=== PATIENT | male | born 1950 | race Caucasian/White ===

== ENCOUNTER 2017-03-17 23:20 | Inpatient (IN) | payer MEDICAID, OTHER ==
[~2017-03-17] VITALS: Ht 175.3 cm; Wt 74.4 kg
--- NOTE | 2017-03-17 23:21 | ED.REPORT ---
HPI-Dyspnea / Wheezing Date of Service Mar 17, 2017 ED Provider: Khurram Lama DO Patient is a 66 year old male with a history of hypertension who presents to the ED via EMS due to a syncopal episode. Associated symptoms include lightheadedness, shortness of breath and a non productive cough. He denies fever. Patient states that when he stood up today he began to feel lightheaded and fainted. The patient had a syncopal episode 4 days ago that prompted him to go to [facility]. 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 Nursing Notes Stated Complaint: WEAKNESS,SHORTNESS OF BREATH Nursing Notes Reviewed: Yes Allergies: Coded Allergies: No Known Allergies (Unverified , 03/17/17) General Time Seen by MD: 23:21 Chief Complaint Shortness of breath Hx Obtained From: Patient Arrived By: Ambulance Sudden in Onset?: Yes Onset Occurred: 5 days ago Symptom Duration: Since onset Severity: Current: No pain currently Recent Healthcare: Recent doctor visit, Recent hospitalization Similar Sx Previous: Yes Past Medical History Past Medical History recent hospitalization at [facility] (03/16/17) due to pneumonia Smoking History Former Smoker (quit 8 months ago) Ambulatory Status Independent Review of Systems Constitutional: Denies: Chills, Fever Respiratory: Reports: Non-productive cough, Shortness of breath Cardiovascular: Denies: Chest pain Skin: Denies Itching, Denies Rash Complete sys rev & neg: except as marked. Neurologic: Reports: Lightheaded, Syncope, Denies: Numbness, Problem walking, Weakness Physical Exam Initial Vital Signs Vital Signs (First) Date Time Temp Pulse Resp B/P Pulse Ox O2 Delivery O2 Flow Rate FiO2 03/17/17 23:24 37.2 97 23 174/74 97 Room Air Initial VS: Reviewed General/Constitutional: Awake, Alert Neck: Atraumatic, Supple, Full range of motion Respiratory / Chest: Atraumatic, No respiratory distress coarse wheezing bilaterally moderate conversational dyspnea barrel chested Cardiovascular: Heart rate NL, Regular rhythm, Heart sounds NL Abdomen: Atraumatic, Soft, Non-tender Skin: Atraumatic, Color NL, No rash, Warm, Dry Neurologic: Oriented X3, Speech NL, No motor deficits, No sensory deficits Head / Eyes: Atraumatic, Normocephalic Psychiatric: Affect NL, Mood NL Interpretation & Diagnostics Lab Results Interpretation Result Diagram: 03/18/17 0453 03/18/17 0453 Test 03/17/17 23:25 03/18/17 00:30 Hold Purple Top Tube Received (Received) Hold Blue Top Tube Received (Received) Hold [place] Top Tube Received (Received) D-Dimer 2.41mg/L FEU (<0.50) Lactic Acid Level 1.6mmol/L (0.4-2.0) Troponin T 0.010ug/L (0.0-0.011) Pro-B-Type Natriuretic Peptide 1770pg/mL (0-210) Procalcitonin 0.38ng/mL (0.00-0.08) X-Ray Chest Interpretation Chest Xray Interpretation: mild patch air space disease View: Portable, 1 view Interpretation / Wet Read by: Wet read ED physician CT Chest Interpretation IMPRESSION: No evidence for PE. Moderate-sized bilateral pleural effusions. Bilateral diffuse reticulonodular densities. Infection should be considered. Differential diagnosis includes hypersensitivity pneumonitis or inflammatory lung disease. There is scarring in the left lung apex with a spiculated lesion measuring 1.5 cm. This may represent focal apical lung scarring. Lung carcinoma is also possible. at 0141 Study type: CT pulm angiogram Interpretation / Wet Read by: Interpret - Radiologist Re-Eval/Medical Decision Med Decision/Clinical Course 66-year-old male presents in moderate distress. He suffered a syncopal episode associated with shortness of breath. As it worsens recently treated for pneumonia and he was discharged home I believe 2 days ago. Today he is so short of breath he passed out. He presents now with cough and global weakness. He did not have any specific chest pain. On examination he looked moderately ill. At times her sat was 89%. He has wheezes and rales in both lung gomez. He looked to be at least moderate distress due to the fact that he could not speak anymore than 5-7 word sentences. Chest x-ray shows patchy infiltrates bilaterally. EKG and cardiac enzymes are reassuring. D-dimer was markedly elevated. CT and grandma's chest was performed. Pulmonary emboli was not visualized. Bilateral pneumonia with bilateral pleural effusions and a left upper lobe spiculated mass were identified. Mr. Badillo was fluid resuscitated. He was treated with bronchodilators. IV steroids. Broad spectrum antibiotics. Overall he looked and felt much better. He was admitted to the progressive care unit in stable condition. Re-Evaluation/Progress #1: Time of Eval: 00:24 Re-Evaluation/Progress Note: Discussed plan for CT due to elevated D-Dimer. Re-Evaluation/Progress #2: Time of Eval: 01:05 Re-Evaluation/Progress Note: Discussed plan for admit. Patient understands and agrees to plan. All questions were addressed. 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, Agrees with plan, Accepts admit Counseled Regarding: Diagnosis, Lab results, Need for admission Discharge & Departure Impression: Primary Impression: Bilateral pneumonia Pneumonia type: due to unspecified organism Lung location: upper lobe of lung Qualified Code: J18.9 - Pneumonia, unspecified organism Additional Impressions: Pleural effusion Reticulonodular infiltrate present on imaging of chest COPD exacerbation Syncope Syncope type: unspecified Qualified Code: R55 - Syncope and collapse Lung nodule Disposition: ADMITTED TO HOSPITAL Discharge Condition All VS Reviewed: Yes Condition: Stable Referrals: Tanner Campbell MD (Family) Crit Care Except Billable Proc Time Spent: 30-74 minutes (60 minutes with bedside management respiratory distress and pneumonia.) Services Performed: Patient management by me, Time spent at bedside, Reviewing test results, Reviewing imaging, Discussing patient care, Documentation in record Scribe Attestation Portions of this note were transcribed by Hannah Jacob. I, Dr. Lama personally performed the history, physical exam and medical decision-making; I reviewed and confirmed the accuracy of the information in the transcribed note. Signed by: Jackeline Merchant, 03/18/17 and 0011 copies to: Tanner Campbell MD, Todd P DO Mar 17, 2017 23:21 Marilee Jacob Mar 17, 2017 23:51 (ALT/SGPT) 56U/L (0-44) Alkaline Phosphatase 112U/L (25-160) Troponin T 0.010ug/L (0.0-0.011) Pro-B-Type Natriuretic Peptide 1770pg/mL (0-210) Total Protein 6.5g/dL (6.4-8.4) Albumin 2.8g/dL (3.4-5.0) Procalcitonin 0.38ng/mL (0.00-0.08) X-Ray Chest Interpretation Chest Xray Interpretation: mild patch air space disease View: Portable, 1 view Interpretation / Wet Read by: Wet read ED physician CT Chest Interpretation IMPRESSION: No evidence for PE. Moderate-sized bilateral pleural effusions. Bilateral diffuse reticulonodular densities. Infection should be considered. Differential diagnosis includes hypersensitivity pneumonitis or inflammatory lung disease. There is scarring in the left lung apex with a spiculated lesion measuring 1.5 cm. This may represent focal apical lung scarring. Lung carcinoma is also possible. at 0141 Study type: CT pulm angiogram Interpretation / Wet Read by: Interpret - Radiologist Re-Eval/Medical Decision Med Decision/Clinical Course Patient was complaining of shortness of breath and syncopal episodes. Trop was negative. He had an elevated D-Dimer so a CT was ordered to rule out PE. Scans showed bilateral diffuse reticulonodular densities, moderate bilateral pleural effusions and scarring in the left lung apex with a spiculated lesion measuring 1.5cm. Re-Evaluation/Progress #1: Time of Eval: 00:24 Re-Evaluation/Progress Note: Discussed plan for CT due to elevated D-Dimer. Re-Evaluation/Progress #2: Time of Eval: 01:05 Re-Evaluation/Progress Note: Discussed plan for admit. Patient understands and agrees to plan. All questions were addressed. 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 I, Dr. Lama personally performed the history, physical exam and medical decision-making; I reviewed and confirmed the accuracy of the information in the transcribed note. Signed by: Jackeline Merchant, 03/18/17 and 0011 copies to: Tanner Campbell MD, Todd P DO Mar 17, 2017 23:21 Marilee Jacob Mar 17, 2017 23:51
[2017-03-17 23:24] VITALS: BP 174/74; PULSE 97; RESP 23; O2SAT 97
[2017-03-17] MEDS ORDERED: Albuterol-Ipratropium 3 mL Inhalation Solution NEB ONE (23:50)
[2017-03-18] VITALS (11 sets, daily range): BP systolic 115–163; BP diastolic 59–80; PULSE 69–92; RESP 15–21; O2SAT 95–98
[2017-03-18 00:43] LABS: BASOPHILS % (AUTO) 0.6 % (0-3)
[2017-03-18 00:47] LABS: EOSINOPHILS % (AUTO) 0.7 % (0-5); MONOCYTES % (AUTO) 8.9 % (4-12); Mean Corpuscular Hemoglobin 30.8 pg (27.0-35.0); Mean Corpuscular Volume 93.7 fL (81-100); NEUTROPHILS % (AUTO) 74.9 % (40-74); Platelet Count 379 bil/L (150-400)
[2017-03-18 01:11] LABS: TROPONIN T 0.01 ug/L (0.0-0.011)
[2017-03-18] MEDS ORDERED: MethylprednisoLONE Sodium Succinate 62.5 mg/mL 2 mL Inj IVPUSH ONE (01:50)
[2017-03-18] MEDS ORDERED: Piperacillin-Tazo 3.375 Gm Inj 3.375 GM in Dextrose 5% Minibag Plus 50 ML IV ONE (01:50)
[2017-03-18] MEDS: levoFLOXacin Inj 750 MG in IV Premix 1 EACH IV ONE ×2 (02:08→02:41)
[2017-03-18] MEDS ORDERED: Polyethylene Glycol (PEG) 17 Gm Powder PO PRN (03:00)
[2017-03-18] MEDS ORDERED: Alum-Mag Hydrox-Simeth 30 mL Suspension PO PRN (03:00)
--- NOTE | 2017-03-18 03:22 | PCM.HPMED ---
Subjective Date of Service Mar 18, 2017 Primary Provider: Admitting Physician: Primary Care Physician: Attending Physician: Admit Status: From the Emergency Department Chief Complaint: Lightheadedness, near-syncope History of Present Illness: Patient is a 66 year old male with a history of hypertension who presents to the ED via EMS due to a near-syncopal episode. Patient states that when he stood up today he began to feel lightheaded, and called 911. He then walked to his bed, states he nearly passed out, but maintained consciousness. He reports intermittent dizziness when standing up. The patient had a syncopal episode 4 days ago that prompted him to go to [facility]. 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 Associated symptoms include lightheadedness, shortness of breath and a non productive cough. He also reports mild chest pain in bilateral lower ribs, not associated with exertion. He reports night sweats last Saturday night. He reports weight loss of 14 lbs since May 2016. He denies fever, chills, wheezing, N/V/D, or any other complaints. Patient reports that he avoids medical care and has not seen a doctor for years. On admission, BP was 174/74, WBC 9 with 75% neutrophils, Hb 12.3, Hct 37.4. Lactic acid 1.6. AST 93, ALT 56, proBNP 1770, procalcitonin 0.38. D-dimer 2.41. CT angio chest night read: No evidence for PE, moderate sized bilateral pleural effusions, bilateral diffuse reticulonodular densities, spiculated 1.5 cm lesion in left lung apex. Review of Systems: Comprehensive review of systems conducted and was negative except for the pertinent positives listed above. Allergies Coded Allergies: No Known Allergies (Unverified , 03/17/17) Home Medications None PMH Hypertension Surgical History None Family History Mother - Stroke Denies any other family history Social History Hx Alcohol Use: No Hx Substance Use: No Smoking Status: Former Smoker (quit 8 months ago. Hx of 20 yrs x 2 PPD) Exam Vital Signs Vital Sign - Last Date Time Temp Pulse Resp B/P Pulse Ox O2 Delivery O2 Flow Rate FiO2 03/18/17 00:33 92 20 149/63 97 Room Air 03/17/17 23:24 37.2 Exam General: Alert, Oriented X3, Cooperative, No acute distress Head: Normocephalic, atraumatic. External ears normal. Eyes: PERRLA, EOMI. Anicteric sclerae. Mouth: Mouth normal, Mucous membranes moist/pink Neck: Neck supple with full range of motion. Chest& Lungs: Decreased lung sounds at the left base. Cardiovascular: Regular rate/rhythm, Normal S1, Normal S2, No murmurs/rubs/ gallops Abdomen: Non-tender, Non-distended, No masses, Normoactive bowel tones, Soft Musculoskeletal: Normal range of motion Extremities: Minimal bilateral lower extremity edema. Neurological: Grossly neurologically intact. Normal speech Skin: no rashes or ecchymosis Lymph: no cervical or supraclavicular lymphadenopathy Lab and Diagnostics Result Diagram: 03/18/172903/18/1729 Assessment & Plan Patient is a 66 year old male with a history of hypertension who presents to the ED via EMS due to a near-syncopal episode. Admitted for bilateral lower lobe pneumonia. Bilateral healthcare associated pneumonia, acute. Present on admission. - Pt presents with lightheadedness; CT scan shows bilat pneumonia (reviewed on admission). Recent hx of hospitalization for pneumonia at [facility] (request records from [facility]). Pt received Vancomycin, Zosyn and levofloxacin in ED. - Continue Vancomycin and Zosyn. Rechecking Cr in AM as pt received contrast. - Urine Legionella and Strep pneumo antigens - MRSA nasal swab - Respiratory viral PCR - Requested records from [facility] Elevated LFTs, unknown acuity. Present on admission. - AST 93, ALT 56. AST is somewhat higher than ALT; pt denies alcohol use. Denies abd pain, N/V/D. - Abd US in AM. - Monitor CMP Hypertension chronic. Present on admission. - Not on any medications. BP was 174/74 on admission. Down to 149/63. Continue to monitor BP overnight, and if it remains elevated over 140 consistently, consider CCB or DARIN inhibitor PO. - Continue to monitor Solitary pulmonary nodule of the left lung apex - CT angio chest showed a spiculated 1.5 cm apical left lung nodule. Given his 40 pack year history, this is suspicious for malignancy. He reports recent night sweats and weight loss. Given its size and spiculated nature, the potential for malignancy is high. Pt should have CT-guided lung biopsy and PET scan in outpatient setting. - Outpatient PET scan - Outpatient CT guided lung biopsy - Bowel regimen as needed - Antiemetic as needed Patient is admitted under inpatient status with expected length of stay greater than 2 midnights due to severity of presenting symptoms, risk of adverse event, and complexity of treatment plan. Attending Statement The patient was seen and examined together with house staff on 03/18/2017 and I agree with the history, exam and plan as outlined in the note above. Albert Saleem Mar 18, 2017 03:22 Keiry Muñoz DO Mar 18, 2017 06:05
[2017-03-18] MEDS ORDERED: 0.9% Sodium Chloride 100 ML ONE (04:08)
[2017-03-18 04:59] LABS: BASOPHILS % (AUTO) 0.5 % (0-3); EOSINOPHILS % (AUTO) 0.2 % (0-5); MONOCYTES % (AUTO) 3.7 % (4-12); Mean Corpuscular Hemoglobin 31.4 pg (27.0-35.0); Mean Corpuscular Volume 94.2 fL (81-100); NEUTROPHILS % (AUTO) 87.6 % (40-74); Platelet Count 356 bil/L (150-400)
--- NOTE | 2017-03-18 06:51 | PCM.CONPHA ---
Subjective Date of Service: Mar 18, 2017 Requesting Provider: Albert Saleem Lightheadedness, near-syncope Reason for Pharmacy Consult: Vancomycin Dosing Objective Vital Signs Date Time Temp Pulse Resp B/P Pulse Ox O2 Delivery O2 Flow Rate FiO2 03/18/17 04:40 88 03/18/17 04:05 36.8 83 16 163/80 95 Room Air 03/18/17 03:55 37 90 20 142/66 98 Room Air 03/18/17 00:33 92 20 149/63 97 Room Air 03/18/17 00:02 90 20 97 Room Air 03/17/17 23:24 37.2 97 23 174/74 97 Room Air Weight (Kilograms): 75.700 Height (Feet): 5 Height (Inches): 9.00 Test 03/17/17 23:25 03/18/17 00:30 03/18/17 04:53 03/18/17 05:00 Hold Purple Top Tube Received (Received) Hold Blue Top Tube Received (Received) Hold [place] Top Tube Received (Received) D-Dimer 2.41mg/L FEU (<0.50) Lactic Acid Level 1.6mmol/L (0.4-2.0) Troponin T 0.010ug/L (0.0-0.011) Pro-B-Type Natriuretic Peptide 1770pg/mL (0-210) Procalcitonin 0.38ng/mL (0.00-0.08) White Blood Count 8.3th/mm3 (3.8-10.1) Red Blood Count 3.98mil/mm3 (4.40-5.80) Hemoglobin 12.5g/dL (13.8-17.2) Hematocrit 37.5% (41.0-50.0) Mean Corpuscular Volume 94.2fL (81-100) Mean Corpuscular Hemoglobin 31.4pg (27.0-35.0) Mean Corpuscular Hemoglobin Concent 33.3% (32.0-37.0) Red Cell Distribution Width 12.9% (12.3-15.4) Platelet Count 356bil/L (150-400) Neutrophils (%) (Auto) 87.6% (40-74) Lymphocytes (%) (Auto) 7.8% (14-46) Monocytes (%) (Auto) 3.7% (4-12) Eosinophils (%) (Auto) 0.2% (0-5) Basophils (%) (Auto) 0.5% (0-3) Hematology Comments Sodium Level 138mEq/L (134-144) Potassium Level 4.5mEq/L (3.5-5.2) Chloride Level 100mEq/L (97-108) Carbon Dioxide Level 24mmol/L (18-29) Blood Urea Nitrogen 9mg/dL (8-27) Creatinine 0.77mg/dL (0.76-1.27) Estimat Glomerular Filtration Rate 108mL/min (>59) Glucose Level 137mg/dL (60-99) Calcium Level 8.5mg/dL (8.5-10.1) Total Bilirubin 0.4mg/dL (0.0-1.2) Aspartate Amino Transf (AST/SGOT) 90U/L (0-50) Alanine Aminotransferase (ALT/SGPT) 55U/L (0-44) Alkaline Phosphatase 111U/L (25-160) Total Protein 5.9g/dL (6.4-8.4) Albumin 2.8g/dL (3.4-5.0) Assessment/Plan Assessment/Plan A: * Vancomycin dosing by pharmacy for 66 y/o man with bilateral healthcare associated pneumonia * He received a vancomycin 1500 mg IV dose in the ED * The patient is also being started on Zosyn * Estimated CrCl for this patient is 97 mL/min (Cockcroft & Gault) * Estimated vancomycin half-life is 8 hours and Vd is 53 liters P: * Starting vancomycin 1500 mg IV every 12 hours * Target a vancomycin trough range of 15 - 20 mcg/mL * Draw a trough level prior to the fourth dose Thank you. Pharmacy will continue to follow this patient. Tabby Cabral Mar 18, 2017 06:51
--- NOTE | 2017-03-18 08:06 | DRSVH ---
PROCEDURE: X-RAY CHEST ONE VIEW, PORTABLE ([id number]) INDICATIONS: 66 year-old male with cough and shortness of breath. TECHNIQUE: One view of the chest was acquired. COMPARISON: [facility], CR, XR CHEST 2V AP/PA AND LAT, 06/23/2016, 8:12 PM. FINDINGS: Surgical changes and devices: None. Lungs and pleura: No pleural effusions or pneumothorax. Patchy bilateral air space opacities are now present. Mediastinum: Mediastinal contours appear normal. Heart size is normal. Bones and chest wall: No suspicious bony lesions. Overlying soft tissues appear unremarkable. IMPRESSION: Patchy bilateral air space opacities may reflect early bronchopneumonia. Dictated by: Olman Moctezuma M.D. on 03/18/2017 at 8:04 Approved by: Olman Moctezuma M.D. on 03/18/2017 at 8:04
--- NOTE | 2017-03-18 08:20 | DRSVH ---
PROCEDURE: CT ANGIO CHEST PULMONARY EMBOLISM ([id number]) INDICATIONS: syncope, short of breath TECHNIQUE: After the administration of intravenous contrast, 2 mm thick sections acquired from the pulmonary api dominic to the posterior costophrenic angles. 3-dimensional maximum intensity projection (MIP) coronal a nd sagittal reformats were then acquired through the thorax. For radiation dose reduction, the follo wing was used: automated exposure control, adjustment of mA and/or kV according to patient size. COMPARISON: [facility], CR, XR CHEST 1VW (PORTABLE), 03/17/2017, 23:46. FINDINGS: Image quality: Excellent. Pulmonary arteries: Pulmonary arteries are normal in size, and demonstrate no intraluminal filling d efects to suggest central pulmonary embolism. Lungs and pleura: There are multiple lung nodules or nodular infiltrates in the right upper, middle a nd lower lobes, as well as left lingula. Mild left basilar consolidation. A 1.4 cm mass in the left a pex. There are small bilateral pleural effusions. No pneumothorax. Central and peripheral airways are patent. Mediastinum: Heart size is normal, without pericardial effusion. There is mild mediastinal and bilat eral hilar lymphadenopathy. There is a 1.5 x 2.5 cm subcarinal lymph node. A mildly enlarged right pa ratracheal lymph node measures 1.2 cm in short axis. Prominent AP window lymph nodes are noted. Promi nent hilar lymph nodes laterally measure up to 1.3 cm. Thoracic aorta is normal in caliber and enhanc ement. Esophagus is normal in caliber, without hiatal hernia. Bones and chest wall: No suspicious bony lesions. Ribs and thoracic spine appear intact throughout. Thyroid gland is normal. No axillary or supraclavicular adenopathy. Abdomen: There are multiple calcified gallstones. A tiny hiatal hernia is noted. Visualized upper ab dominal solid organs appear normal in the early arterial phase of enhancement. IMPRESSION: 1. No evidence for central pulmonary embolism. 2. Bilateral lung nodules or nodular infiltrates. The CT findings are nonspecific. Differential diagn oses include infectious etiology, especially atypical infections, inflammatory condition (such as Weg ener's granulomatosis), and less likely neoplasm. Recommend short interval followup after adequate tr eatment. 3. A 1.0 cm left apical mass. Please see enclosed followup recommendation. 4. Bilateral small pleural effusions. 5. Mediastinal and bilateral lymphadenopathy. 6. Cholelithiasis. No significant discrepancy with the locomotive driver radiology preliminary report. Fleischner Society criteria for SOLID lung nodule followup. Nodule size (mm)Low-risk patientHigh-risk [id number] follow-up neededFollow-up at 12 mo; if no montoya e, no further follow-up>[id number] CT at 12 mo; if no change, no further follow-up needed.Initial f ollow-up CT at 6-12 mo, then 18-24 mo if no change. >6-8Initial follow-up CT at 6-12 mo, then 18-24 mo if no change. Initial follow-up CT at 3-6 mo, then 9-12 mo and 24 mo if no change. >8Follow-up CT at 3, 9, 24 mo. Or PET and/or biopsy.Same as for low-risk pts. Fleischner Society criteria for SUB-SOLID lung nodule followup. Solitary pure ground-glass nodules5 mm or lessNo followup needed. >5 mm3 mo follow-up CT to confirm persistence. Then annual CT for 3 years. Part-solid nodules3 mo follow-up CT to confirm persistence . If persistent with solid component <5 mm, annual CT for at least 3 years. If solid component is 5 mm or more, biopsy or surgical resection. Consider PET-CT for lesions > 10 mm. Multiple sub-solid nodulesPure ground glass nodules [address] at 2 and 4 years. Pure ground glass nodules >5 mm without dominant lesion. [address] to confirm persistence, then annual followup CT for at least 3 years. Dominant nodule(s) with part-solid or solid component. [address] to confirm persistence. If persistent, consider biopsy or surgical resection, sin if lesions have >5 m m solid component. Dictated by: Suri Sosa M.D. on 03/18/2017 at 8:05 Approved by: Suri Sosa M.D. on 03/18/2017 at 8:18
[2017-03-18] MEDS ORDERED: Vancomycin Dose per Pharmacist XX SCH (08:30)
[2017-03-18] MEDS ORDERED: 0.9% Sodium Chloride 250 ML ONE (08:56)
[2017-03-18] MEDS: Piperacillin-Tazo 3.375 Gm Inj 3.375 GM in Dextrose 5% Minibag Plus 50 ML IV SCH ×2 (08:59→17:22)
[2017-03-18] MEDS: Heparin 5,000 Unit/mL Inj SUBQ SCH ×2 (09:02→17:24)
--- NOTE | 2017-03-18 10:06 | NUR ---
NPO/[employer] Pt ate breakfast this morning and US needs to be done on empty stomach, water/ice ok to have; per US tech we can make NPO for noon meal and they will come back to do US this afternoon. Pt agreeable to plan. Will continue to monitor
[2017-03-18] MEDS ORDERED: Vancomycin Inj 1,500 MG in 0.9% Sodium Chloride 500 ML IV SCH (11:00)
[2017-03-18] MEDS: predniSONE 20 mg Tablet PO SCH (17:21)
--- NOTE | 2017-03-18 17:51 | DRSVH ---
PROCEDURE: US ABDOMEN ([id number]) INDICATIONS: Elevated LFTs TECHNIQUE: Real-time scanning was performed of the abdominal and retroperitoneal organs, with image documentatio n. COMPARISON: None. FINDINGS: Liver: Liver is coarsely echogenic. No focal lesion identified. Gallbladder: Numerous gravel like subcentimeter gallstones. There is gall bladder wall thickening and pericholecystic fluid. No sonographic Gaines sign. Biliary ducts: Intrahepatic bile ducts are non-dilated. Extrahepatic bile duct caliber measures 5 m m. Normal is 6-7 mm or less in diameter, or 10 mm or less post-cholecystectomy. Pancreas: Visualized portions of the pancreas are sonographically normal. Spleen: Spleen is normal in size and homogeneous in echotexture. Kidneys: Kidneys are normal in size and echotexture. Right kidney measures 10.8 cm long; left kidne y measures 11.7 cm long. No hydronephrosis or nephrolithiasis. No solid masses. Aorta: Visualized aorta is normal in caliber at less than 3 cm. Iliacs: Proximal common iliac arteries are normal in caliber at less than 2.5 cm. IVC: Intrahepatic inferior vena cava is patent. Miscellaneous: No free abdominal fluid. IMPRESSION: Cholelithiasis and gallbladder wall thickening. There is also pericholecystic fluid suspicious for ac matty cholecystitis, although no sonographic Gaines sign or biliary ductal dilatation. Therefore, pleas e correlate clinically and with LFTs. Echogenic liver suggesting diffuse hepatocellular disease/fatty infiltration. Please correlate clinic ally and with laboratory data Dictated by: Froilan Sampson M.D. on 03/18/2017 at 17:46 Approved by: Froilan Sampson M.D. on 03/18/2017 at 17:49
--- NOTE | 2017-03-18 20:38 | PCM.PNMED ---
Subjective Date of Service Mar 18, 2017 Subjective History: Patient is a 66 year old male with a history of hypertension who presents to the ED via EMS due to a near-syncopal episode. Patient states that when he stood up today he began to feel lightheaded, and called 911. He then walked to his bed, states he nearly passed out, but maintained consciousness. He reports intermittent dizziness when standing up. The patient had a syncopal episode 4 days ago that prompted him to go to [facility]. 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 Associated symptoms include lightheadedness, shortness of breath and a non productive cough. He also reports mild chest pain in bilateral lower ribs, not associated with exertion. He reports night sweats last Saturday night. He reports weight loss of 14 lbs since May 2016. He denies fever, chills, wheezing, N/V/D, or any other complaints. Patient reports that he avoids medical care and has not seen a doctor for years. On admission, BP was 174/74, WBC 9 with 75% neutrophils, Hb 12.3, Hct 37.4. Lactic acid 1.6. AST 93, ALT 56, proBNP 1770, procalcitonin 0.38. D-dimer 2.41. CT angio chest night read: No evidence for PE, moderate sized bilateral pleural effusions, bilateral diffuse reticulonodular densities, spiculated 1.5 cm lesion in left lung apex. Today, he is resting in bed comfortably in no acute distress. He is having some difficulty with breathing, has a sore throat and some dry cough. He denies headache, dizziness, nasal congestion, chest pain, nausea, vomiting, diarrhea and constipation. His last bowel movement was this morning. Exam Vital Signs Vital Sign - Last Date Time Temp Pulse Resp B/P Pulse Ox O2 Delivery O2 Flow Rate FiO2 03/18/17 04:40 88 03/18/17 04:05 36.8 16 163/80 95 Room Air Intake and Output 03/17/17 03/17/17 03/18/17 Cumulative From/Thru 15:00 23:00 07:00 03/17/17 23:24 - 03/18/17 06:15 Intake Total 0 ml 0 ml Output Total 550 ml 550 ml Balance -550 ml -550 ml Intake Oral 0 ml 0 ml Output Urine Total 550 ml 550 ml # Voids 2 2 # Bowel Movements 1 1 Exam General: Alert, Oriented X3, Cooperative, No acute distress Head: Normocephalic, atraumatic. External ears normal. Eyes: PERRLA, EOMI. Anicteric sclerae. Mouth: Mouth normal, Mucous membranes moist/pink Neck: Neck supple with full range of motion. Chest& Lungs: Decreased lung sounds and rales at the left base. Cardiovascular: Regular rate/rhythm, Normal S1, Normal S2, No murmurs/rubs/ gallops Abdomen: Non-tender, Non-distended, No masses, Normoactive bowel tones, Soft Musculoskeletal: Normal range of motion Extremities: Minimal bilateral lower extremity edema. Neurological: Grossly neurologically intact. Normal speech Skin: no rashes or ecchymosis Lymph: no cervical or supraclavicular lymphadenopathy Lab and Diagnostics Laboratory Tests 72 Hours Test 03/17/17 23:25 03/18/17 00:30 03/18/17 04:53 03/18/17 05:00 Hold Purple Top Tube Received (Received) Hold Blue Top Tube Received (Received) Hold Five [place] Top Tube Received (Received) White Blood Count 9.0th/mm3 (3.8-10.1) 8.3th/mm3 (3.8-10.1) Red Blood Count 3.99mil/mm3 (4.40-5.80) 3.98mil/mm3 (4.40-5.80) Hemoglobin 12.3g/dL (13.8-17.2) 12.5g/dL (13.8-17.2) Hematocrit 37.4% (41.0-50.0) 37.5% (41.0-50.0) Mean Corpuscular Volume 93.7fL (81-100) 94.2fL (81-100) Mean Corpuscular Hemoglobin 30.8pg (27.0-35.0) 31.4pg (27.0-35.0) Mean Corpuscular Hemoglobin Concent 32.9% (32.0-37.0) 33.3% (32.0-37.0) Red Cell Distribution Width 12.9% (12.3-15.4) 12.9% (12.3-15.4) Platelet Count 379bil/L (150-400) 356bil/L (150-400) Neutrophils (%) (Auto) 74.9% (40-74) 87.6% (40-74) Lymphocytes (%) (Auto) 14.6% (14-46) 7.8% (14-46) Monocytes (%) (Auto) 8.9% (4-12) 3.7% (4-12) Eosinophils (%) (Auto) 0.7% (0-5) 0.2% (0-5) Basophils (%) (Auto) 0.6% (0-3) 0.5% (0-3) Hematology Comments D-Dimer 2.41mg/L FEU (<0.50) Sodium Level 137mEq/L (134-144) 138mEq/L (134-144) Potassium Level 3.6mEq/L (3.5-5.2) 4.5mEq/L (3.5-5.2) Chloride Level 96mEq/L (97-108) 100mEq/L (97-108) Carbon Dioxide Level 24mmol/L (18-29) 24mmol/L (18-29) Blood Urea Nitrogen 11mg/dL (8-27) 9mg/dL (8-27) Creatinine 0.77mg/dL (0.76-1.27) 0.77mg/dL (0.76-1.27) Estimat Glomerular Filtration Rate 108mL/min (>59) 108mL/min (>59) Glucose Level 110mg/dL (60-99) 137mg/dL (60-99) Lactic Acid Level 1.6mmol/L (0.4-2.0) Calcium Level 8.6mg/dL (8.5-10.1) 8.5mg/dL (8.5-10.1) Total Bilirubin 0.3mg/dL (0.0-1.2) 0.4mg/dL (0.0-1.2) Aspartate Amino Transf (AST/SGOT) 93U/L (0-50) 90U/L (0-50) Alanine Aminotransferase (ALT/SGPT) 56U/L (0-44) 55U/L (0-44) Alkaline Phosphatase 112U/L (25-160) 111U/L (25-160) Troponin T 0.010ug/L (0.0-0.011) Pro-B-Type Natriuretic Peptide 1770pg/mL (0-210) Total Protein 6.5g/dL (6.4-8.4) 5.9g/dL (6.4-8.4) Albumin 2.8g/dL (3.4-5.0) 2.8g/dL (3.4-5.0) Procalcitonin 0.38ng/mL (0.00-0.08) Result Diagram: 03/18/17 0453 03/18/17 0453 Microbiology Microbiology 03/18/17 Blood Culture, Received Pending 03/18/17 MRSA (PCR) - Final, Complete 03/18/17 Adenovirus DNA (PCR) - Final, Complete Not Detected 03/18/17 Coronavirus 229E PCR - Final, Complete Not Detected 03/18/17 Coronavirus HKU1 PCR - Final, Complete Not Detected 03/18/17 Coronavirus NL63 PCR - Final, Complete Not Detected 03/18/17 Coronavirus OC43 PCR - Final, Complete Not Detected 03/18/17 Influenza Type A (PCR) - Final, Complete Not Detected 03/18/17 Influenza Type B (PCR) - Final, Complete Not Detected 03/18/17 Human Metapneumovirus (PCR) (SUDHAKAR) - Final, Complete Not Detected 03/18/17 Rhinovirus (PCR)(SUDHAKAR) - Final, Complete Not Detected 03/18/17 Parainfluenza Virus Type 1 (PCR) - Final, Complete Not Detected 03/18/17 Parainfluenza Virus Type 2 (PCR) - Final, Complete Not Detected 03/18/17 Parainfluenza Virus Type 3 (PCR) - Final, Complete Not Detected 03/18/17 Parainfluenza Virus Type 4 (NAAT) - Final, Complete Not Detected 03/18/17 Respiratory Syncytial Virus (PCR)SD - Final, Complete Not Detected 03/18/17 Chlamydia pneumoniae (PCR) - Final, Complete Not Detected 03/18/17 Mycoplasma pneumoniae DNA Detection - Final, Complete 03/18/17 Streptococcus pneumoniae Ag Screen - Final, Complete X-Rays, CTs and MRIs 03/18/17 PROCEDURE: US ABDOMEN ([id number]) IMPRESSION: Cholelithiasis and gallbladder wall thickening. There is also pericholecystic fluid suspicious for acute cholecystitis, although no sonographic Gaines sign or biliary ductal dilatation. Therefore, please correlate clinically and with LFTs. Echogenic liver suggesting diffuse hepatocellular disease/fatty infiltration. Please correlate clinically and with laboratory data 03/18/17 PROCEDURE: CT ANGIO CHEST PULMONARY EMBOLISM ([id number]) IMPRESSION: 1. No evidence for central pulmonary embolism. 2. Bilateral lung nodules or nodular infiltrates. The CT findings are nonspecific. Differential diagnoses include infectious etiology, especially atypical infections, inflammatory condition (such as Juan C's granulomatosis), and less likely neoplasm. Recommend short interval followup after adequate treatment. 3. A 1.0 cm left apical mass. Please see enclosed followup recommendation. 4. Bilateral small pleural effusions. 5. Mediastinal and bilateral lymphadenopathy. 6. Cholelithiasis. No significant discrepancy with the operations supervisor 2nd shift radiology preliminary report. Fleischner Society criteria for SOLID lung nodule followup. Nodule size (mm)Low-risk patientHigh-risk [id number] follow-up neededFollow-up at 12 mo; if no change, no further follow-up>1-8Gklwxr-ic CT at 12 mo; if no change, no further follow-up needed.Initial follow-up CT at 6-12 mo, then 18-24 mo if no change. >6-8Initial follow-up CT at 6-12 mo, then 18-24 mo if no change. Initial follow-up CT at 3-6 mo, then 9-12 mo and 24 mo if no change. > 8Follow-up CT at 3, 9, 24 mo. Or PET and/or biopsy.Same as for low-risk pts. Fleischner Society criteria for SUB-SOLID lung nodule followup. Solitary pure ground-glass nodules5 mm or lessNo followup needed. >5 mm3 mo follow-up CT to confirm persistence. Then annual CT for 3 years. Part-solid nodules3 mo follow-up CT to confirm persistence. If persistent with solid component <5 mm, annual CT for at least 3 years. If solid component is 5 mm or more, biopsy or surgical resection. Consider PET-CT for lesions > 10 mm. Multiple sub-solid nodulesPure ground glass nodules [address] at 2 and 4 years. Pure ground glass nodules >5 mm without dominant lesion. [address] to confirm persistence, then annual followup CT for at least 3 years. Dominant nodule(s) with part-solid or solid component. [address] to confirm persistence. If persistent, consider biopsy or surgical resection, sin if lesions have >5 mm solid component. 03/17/17 PROCEDURE: X-RAY CHEST ONE VIEW, PORTABLE ([id number]) IMPRESSION: Patchy bilateral air space opacities may reflect early bronchopneumonia. Assessment & Plan Patient is a 66 year old male with a history of hypertension who presents to the ED via EMS due to a near-syncopal episode. Admitted for bilateral lower lobe pneumonia. Bilateral pneumonia, HCAP acute. Present on admission. - Treat as HCAP as patient recently seen at [facility] within the last week. - Pt presents with lightheadedness; CT scan shows bilat pneumonia (reviewed on admission). Recent hx of hospitalization for pneumonia at [facility]. - Pt received Vancomycin, Zosyn and levofloxacin in ED. - Continued Vancomycin, Zosyn till 03/18/17 before getting [facility] records. Rechecking Cr in AM as pt received contrast. - Urine Legionella and Strep pneumo antigens negative - MRSA nasal swab and respiratory viral PCR negative - Respiratory viral PCR - Started Azithromycin and prednisone 40 mg. - Requested records from [facility], on 03/18/17 found out that He was treated for community acquired pneumonia for 2 days over there and responded well to treatment on ceftriaxone and azithromycin. - Per guidelines, with low risk for MRSA, patient will be treated with levofloxacin 750 mg PO daily. - Will also add azithromycin for 3 more days to help with extensive lung disease from COPD. - Prednisone 40 mg started 03/18/17, will treat till 03/22/17 - Consider PFT outpatient Elevated LFTs, unknown acuity. Present on admission. - AST 93, ALT 56. AST is somewhat higher than ALT; pt denies alcohol use. Denies abd pain, N/V/D. - Abd US in AM. - Monitor CMP - Hep C and HIV labs ordered Hypertension chronic. Present on admission. - Not on any medications. BP was 174/74 on admission. Down to 149/63. Continue to monitor BP overnight, and if it remains elevated over 140 consistently, consider CCB or DARIN inhibitor PO. - Continue to monitor Solitary pulmonary nodule of the left lung apex - CT angio chest showed a spiculated 1.5 cm apical left lung nodule. Given his 40 pack year history, this is suspicious for malignancy. He reports recent night sweats and weight loss. Given its size and spiculated nature, the potential for malignancy is high. Pt should have CT-guided lung biopsy and PET scan in outpatient setting. - Outpatient PET scan - Outpatient CT guided lung biopsy - Bowel regimen as needed - Antiemetic as needed Patient is admitted under inpatient status with expected length of stay greater than 2 midnights due to severity of presenting symptoms, risk of adverse event, and complexity of treatment plan. Pain Evaluation: Adequate Pain Control Resuscitation Status: CPR: Attempt Resuscitation Attending Statement The patient was seen and examined together with Dr. Jeronimo on 03/18/2017 and I agree with the history, exam and plan as outlined in the note above. . Erna Jeronimo DO Mar 18, 2017 06:35 Addy Matias MD Mar 19, 2017 07:42
[2017-03-19] VITALS (7 sets, daily range): BP systolic 122–174; BP diastolic 65–84; PULSE 61–88; RESP 14–28; O2SAT 95–98
[2017-03-19] MEDS: Heparin 5,000 Unit/mL Inj SUBQ SCH ×3 (00:50→17:05)
[2017-03-19 04:51] LABS: Mean Corpuscular Hemoglobin 30.8 pg (27.0-35.0); Platelet Count 407 bil/L (150-400)
--- NOTE | 2017-03-19 04:56 | NUR ---
Shift Note TELE: SR 70s, unchanged. Respiratory: RA with SpO2 >95%. GI/: Pt uses BR with little to no assistance from staff. Neuro: Pt A&Ox4, juan m, cms in all four extremities. NS running TKO through right AC PIV. Addendum: 03/19/17 at 0514 by JOSE LUIS NAYLOR RN At 0510 this morning, pt c/o heart burn. Pt states it was the food he ate last night. Pt denies chest pain, tele remains unchanged. Pt given Maalox PO.
[2017-03-19 05:07] LABS: MONOCYTES % (AUTO) 5.5 % (4-12); NEUTROPHILS % (AUTO) 85.5 % (40-74)
[2017-03-19 05:08] LABS: BASOPHILS % (AUTO) 0.2 % (0-3); EOSINOPHILS % (AUTO) 0 % (0-5)
[2017-03-19] MEDS ORDERED: 0.9% Sodium Chloride 1,000 ML IV SCH (05:55)
[2017-03-19] MEDS: levoFLOXacin 750 mg Tablet PO SCH (08:19)
[2017-03-19] MEDS: predniSONE 20 mg Tablet PO SCH (08:20)
[2017-03-19] MEDS ORDERED: Vancomycin Serum Trough XX ONE (10:30)
--- NOTE | 2017-03-19 12:35 | NUR ---
Evaluation completed. Please go to "Notes" then click on "Assessments and Notes" (bottom left corner of screen). Then select appropriate discipline tab on top of screen.
--- NOTE | 2017-03-19 17:07 | NUR ---
Up and about independently. No c/o pain, nausea or shortness of breath. A/O and in good spirits. RA sats 97%, no resp distress noted. Sinus rhythm on tele, now discontinued; BP stable. Afebrile. No cough noted, no sputum produced for sample.
[2017-03-19] MEDS: Ondansetron 2 mg/mL 2 mL Inj IVPUSH PRN ×2 (18:07→20:03)
[2017-03-19] MEDS ORDERED: Alum-Mag Hydrox-Simeth 30 mL Suspension PO PRN (19:30)
--- NOTE | 2017-03-19 20:30 | PCM.PNMED ---
Subjective Date of Service Mar 19, 2017 Subjective Overnight Events: None Today, Mr. Badillo is resting in bed comfortably and in no acute distress. He mentions being able to breath much better today, but is still feeling a little weaker than usual. He denies any headache, dizziness, chest pain, abdominal pain , nausea, vomiting, diarrhea or constipation. Exam Vital Signs Vital Sign - Last Date Time Temp Pulse Resp B/P Pulse Ox O2 Delivery O2 Flow Rate FiO2 03/19/17 04:21 36.7 62 22 153/65 98 Room Air Intake and Output 03/18/17 03/18/17 03/19/17 Cumulative From/Thru 15:00 23:00 07:00 03/17/17 23:24 - 03/19/17 06:45 Intake Total 1767 ml 1094 ml 2861 ml Output Total 300 ml 850 ml Balance 1767 ml 794 ml 2011 ml Intake Oral 880 ml 822 ml 1702 ml IV Total 887 ml 272 ml 1159 ml Output Urine Total 300 ml 850 ml # Voids 3 5 # Bowel Movements 1 2 Exam General: Alert, Oriented X3, Cooperative, No acute distress Head: Normocephalic, atraumatic. External ears normal. Eyes: PERRLA, EOMI. Anicteric sclerae. Mouth: Mouth normal, Mucous membranes moist/pink Neck: Neck supple with full range of motion. Chest& Lungs: Decreased lung sounds bilaterally, without wheezing or rales Cardiovascular: Regular rate/rhythm, Normal S1, Normal S2, No murmurs/rubs/ gallops Abdomen: Non-tender, Non-distended, No masses, Normoactive bowel tones, Soft Musculoskeletal: Normal range of motion Extremities: Minimal bilateral lower extremity edema. Neurological: Grossly neurologically intact. Normal speech Skin: no rashes or ecchymosis Lymph: no cervical or supraclavicular lymphadenopathy Lab and Diagnostics Item Value Date Time White Blood Count 11.8 th/mm3 H 03/19/17 0430 White Blood Count 8.3 th/mm3 03/18/17 0453 Hemoglobin 12.5 g/dL L 03/18/173 Hematocrit 36.2 % L 03/19/17 0430 Hematocrit 37.5 % L 03/18/173 Hemoglobin 11.6 g/dL L 03/19/17 043 Potassium Level 6.1 mEq/L *H 03/19/17429 Potassium Level 4.5 mEq/L 03/18/17452 Potassium Level 5.1 mEq/L 03/19/17609 Sodium Level 142 mEq/L 03/19/17429 Sodium Level 138 mEq/L 03/18/17452 Procalcitonin 0.20 ng/mL H 03/19/17429 Procalcitonin 0.38 ng/mL H 03/18/1729 Aspartate Amino Transf (AST/SGOT) 90 U/L H 03/18/17452 Alanine Aminotransferase (ALT/SGPT) 55 U/L H 03/18/17452 Aspartate Amino Transf (AST/SGOT) 93 U/L H 03/18/1729 Alanine Aminotransferase (ALT/SGPT) 56 U/L H 03/18/1729 Result Diagram: 03/19/1742903/19/17609 Microbiology Microbiology 03/18/17 Blood Culture, Received Pending 03/18/17 MRSA (PCR) - Final, Complete 03/18/17 Adenovirus DNA (PCR) - Final, Complete Not Detected 03/18/17 Coronavirus 229E PCR - Final, Complete Not Detected 03/18/17 Coronavirus HKU1 PCR - Final, Complete Not Detected 03/18/17 Coronavirus NL63 PCR - Final, Complete Not Detected 03/18/17 Coronavirus OC43 PCR - Final, Complete Not Detected 03/18/17 Influenza Type A (PCR) - Final, Complete Not Detected 03/18/17 Influenza Type B (PCR) - Final, Complete Not Detected 03/18/17 Human Metapneumovirus (PCR) (SUDHAKAR) - Final, Complete Not Detected 03/18/17 Rhinovirus (PCR)(SUDHAKAR) - Final, Complete Not Detected 03/18/17 Parainfluenza Virus Type 1 (PCR) - Final, Complete Not Detected 03/18/17 Parainfluenza Virus Type 2 (PCR) - Final, Complete Not Detected 03/18/17 Parainfluenza Virus Type 3 (PCR) - Final, Complete Not Detected 03/18/17 Parainfluenza Virus Type 4 (NAAT) - Final, Complete Not Detected 03/18/17 Respiratory Syncytial Virus (PCR)MT - Final, Complete Not Detected 03/18/17 Chlamydia pneumoniae (PCR) - Final, Complete Not Detected 03/18/17 Mycoplasma pneumoniae DNA Detection - Final, Complete 03/18/17 Streptococcus pneumoniae Ag Screen - Final, Complete X-Rays, CTs and MRIs 03/18/17 PROCEDURE: US ABDOMEN ([id number]) IMPRESSION: Cholelithiasis and gallbladder wall thickening. There is also pericholecystic fluid suspicious for acute cholecystitis, although no sonographic Gaines sign or biliary ductal dilatation. Therefore, please correlate clinically and with LFTs. Echogenic liver suggesting diffuse hepatocellular disease/fatty infiltration. Please correlate clinically and with laboratory data 03/18/17 PROCEDURE: CT ANGIO CHEST PULMONARY EMBOLISM ([id number]) IMPRESSION: 1. No evidence for central pulmonary embolism. 2. Bilateral lung nodules or nodular infiltrates. The CT findings are nonspecific. Differential diagnoses include infectious etiology, especially atypical infections, inflammatory condition (such as Juan C's granulomatosis), and less likely neoplasm. Recommend short interval followup after adequate treatment. 3. A 1.0 cm left apical mass. Please see enclosed followup recommendation. 4. Bilateral small pleural effusions. 5. Mediastinal and bilateral lymphadenopathy. 6. Cholelithiasis. No significant discrepancy with the night clerk auditor radiology preliminary report. Fleischner Society criteria for SOLID lung nodule followup. Nodule size (mm)Low-risk patientHigh-risk gedatqw2Sm follow-up neededFollow-up at 12 mo; if no change, no further follow-up>0-6Hwnqyk-lv CT at 12 mo; if no change, no further follow-up needed.Initial follow-up CT at 6-12 mo, then 18-24 mo if no change. >6-8Initial follow-up CT at 6-12 mo, then 18-24 mo if no change. Initial follow-up CT at 3-6 mo, then 9-12 mo and 24 mo if no change. > 8Follow-up CT at 3, 9, 24 mo. Or PET and/or biopsy.Same as for low-risk pts. Fleischner Society criteria for SUB-SOLID lung nodule followup. Solitary pure ground-glass nodules5 mm or lessNo followup needed. >5 mm3 mo follow-up CT to confirm persistence. Then annual CT for 3 years. Part-solid nodules3 mo follow-up CT to confirm persistence. If persistent with solid component <5 mm, annual CT for at least 3 years. If solid component is 5 mm or more, biopsy or surgical resection. Consider PET-CT for lesions > 10 mm. Multiple sub-solid nodulesPure ground glass nodules [address] at 2 and 4 years. Pure ground glass nodules >5 mm without dominant lesion. [address] to confirm persistence, then annual followup CT for at least 3 years. Dominant nodule(s) with part-solid or solid component. [address] to confirm persistence. If persistent, consider biopsy or surgical resection, sin if lesions have >5 mm solid component. 03/17/17 PROCEDURE: X-RAY CHEST ONE VIEW, PORTABLE ([id number]) IMPRESSION: Patchy bilateral air space opacities may reflect early bronchopneumonia. Assessment & Plan Patient is a 66 year old male with a history of hypertension who presents to the ED via EMS due to a near-syncopal episode. Admitted for bilateral lower lobe pneumonia. Bilateral pneumonia, HCAP acute. Present on admission. - Treat as HCAP as patient recently seen at [facility] within the last week. - Pt presents with lightheadedness; CT scan shows bilat pneumonia (reviewed on admission). Recent hx of hospitalization for pneumonia at [facility]. - Pt received Vancomycin, Zosyn and levofloxacin in ED. - Continued Vancomycin, Zosyn till 03/18/17 before getting [facility] records. Rechecking Cr in AM as pt received contrast. - Urine Legionella and Strep pneumo antigens negative - MRSA nasal swab and respiratory viral PCR negative - Respiratory viral PCR - Cpntinue Azithromycin and prednisone 40 mg. - Requested records from [facility], on 03/18/17 found out that He was treated for community acquired pneumonia for 2 days over there and responded well to treatment on ceftriaxone and azithromycin. - Per guidelines, with low risk for MRSA, patient will be treated with levofloxacin 750 mg PO daily. - Will continuew azithromycin for 2 more days to help with extensive lung disease from COPD. - Prednisone 40 mg started 03/18/17, will treat till 03/22/17 - Consider PFT outpatient. - Social work has been consulted to help with setting up an appointment with [facility] and discuss how best to get medication upon discharge, using $4 medications. Elevated LFTs, unknown acuity. Present on admission. - AST 93, ALT 56. AST is somewhat higher than ALT; pt denies alcohol use. Denies abd pain, N/V/D. - Abd US as above. - Monitor CMP - Hep C and HIV labs negative Hypertension chronic. Present on admission. - Not on any medications. BP was 174/74 on admission. Down to 149/63. Continue to monitor BP overnight, and if it remains elevated over 140 consistently, consider CCB or DARIN inhibitor PO. - Continue to monitor Solitary pulmonary nodule of the left lung apex - CT angio chest showed a spiculated 1.5 cm apical left lung nodule. Given his 40 pack year history, this is suspicious for malignancy. He reports recent night sweats and weight loss. Given its size and spiculated nature, the potential for malignancy is high. Pt should have CT-guided lung biopsy and PET scan in outpatient setting. - Outpatient PET scan - Outpatient CT guided lung biopsy - Bowel regimen as needed - Antiemetic as needed Disposition: Patient is likely to discharge tomorrow if he is still ambulating on his own and not having any difficulty with breathing. Pain Evaluation: Adequate Pain Control VTE Mechanical Devices: Intermittant Pneumatic CD Resuscitation Status: CPR: Attempt Resuscitation Attending Statement The patient was seen and examined together with Dr. Jeronimo on 03/19/2017 and I agree with the history, exam and plan as outlined in the note above. . Eran Jeronimo DO Mar 19, 2017 07:04 Addy Matias MD Mar 19, 2017 20:38
[2017-03-20] MEDS: Heparin 5,000 Unit/mL Inj SUBQ SCH ×3 (00:56→16:16)
[2017-03-20 05:09] VITALS: BP 125/55; PULSE 60; RESP 20; O2SAT 97
[2017-03-20 06:02] LABS: Mean Corpuscular Hemoglobin 30.6 pg (27.0-35.0); Mean Corpuscular Volume 97.4 fL (81-100)
--- NOTE | 2017-03-20 06:40 | NUR ---
Arrival to [facility] room 3014 Patient arrived to [facility] at 2200. alert and orientedx4 able to make needs known. independent in room. reports heart burn not relieved by Maalox or Zofran. notified. new order for Tums received. 30 minutes later patient reports relief. will continue to monitor.
[2017-03-20] MEDS: predniSONE 20 mg Tablet PO SCH (07:45)
[2017-03-20] MEDS: levoFLOXacin 750 mg Tablet PO SCH (07:45)
[2017-03-20 07:52] LABS: BASOPHILS % (AUTO) 0.1 % (0-3); EOSINOPHILS % (AUTO) 0 % (0-5); MONOCYTES % (AUTO) 7.5 % (4-12)
--- NOTE | 2017-03-20 09:16 | NUR ---
Social Work-screening: Data:EMR Reviewed. Pt is a 66 y/o male who was admitted on 03/18/17 for pneumonia per H&P. Pt's insurance is Medicaid and PCP is not listed. EMR reviewed. CARIE met with pt at bedside, CARIE role explained. Pt is alert and oriented x3. Pt resides at home alone in [place] in a second floor apartment. Pt is independent at baseline and drives. Pt has no DME at home. PT has seen pt and recommended home with Fww. SW discussed Fww, pt is unsure if he would need this. Pt would like to take RX home with him and decide from there. CARIE updated MD. Pt has no PCP, pt agreeable to residency clinic appointment, SW to await MD order to arrange. CARIE discussed DPOA/ advanced directive, pt confirms he has not completed this and is not interested in any information. SW provided pt with discharge planning checklist booklet and encouraged him to call with any questions. SW provided phone number and plan on white board in room. Pt confirms that his friend will provide transport home. CARIE will continue to follow. Assessment:Pt who would benefit from PCP. Plan:Pt to discharge home when medically stable via POV. SW to set up PCP appointment once MD order obtained. CARIE will continue to follow. CORNELIUS Kirby Addendum: 03/20/17 at 1027 by MECHE MENDOZA MD order received for PCP appointment. [facility] called [facility] and set pt up with PCP appointment for Monday 03/26 at 2:00 appointment with 1:45 check in. Information provided to pt for appointment. CARIE will continue to follow. CORNELIUS Kirby
--- NOTE | 2017-03-20 10:11 | PCM.PNMED ---
Subjective Date of Service Mar 20, 2017 Subjective Georgi Badillo is a 66 year old man with a history of hypertension who presents to the ED via EMS due to a near-syncopal episode. Admitted for bilateral hospital acquired lower lobe pneumonia. Hospital day #3 Overnight: No acute events reported. Today: Patient is still feeling rather weak. He does live at home alone and has 16 steps to get to his apartment. Yesterday he was able to work with physical therapy and do some steps. He is very afraid and concerned about going home as he was recently discharged for pneumonia and readmitted. He feels that he is still not quite up to his baseline health status. He denies any significant shortness of breath however does note shortness of breath on exertion. He did have an episode of drenching sweats last night. The remainder review of systems is negative except as noted above. Exam Vital Signs Vital Sign - Last Date Time Temp Pulse Resp B/P Pulse Ox O2 Delivery O2 Flow Rate FiO2 03/20/17 07:45 Supplement Oxygen 03/20/17 05:09 36.4 60 20 125/55 97 Intake and Output 03/19/17 03/19/17 03/20/17 Cumulative From/Thru 15:00 23:00 07:00 03/17/17 23:24 - 03/20/17 06:38 Intake Total 1697 ml 236 ml 4794 ml Output Total 750 ml 1600 ml Balance 947 ml 236 ml 3194 ml Intake Oral 932 ml 236 ml 2870 ml IV Total 765 ml 1924 ml Output Urine Total 750 ml 1600 ml # Voids 2 2 9 # Bowel Movements 2 4 Exam General: Alert, Oriented X3, Cooperative, No acute distress Head: Normocephalic, atraumatic. External ears normal. Eyes: PERRLA, EOMI. Anicteric sclerae. Mouth: Mouth normal, Mucous membranes moist/pink Neck: Neck supple with full range of motion. Chest& Lungs: Significantly decreased lung sounds throughout, without wheezing or rales. Barrel chest. Cardiovascular: Regular rate/rhythm, Normal S1, Normal S2, No murmurs/rubs/ gallops Abdomen: Non-tender, Non-distended, No masses, Normoactive bowel tones, Soft Musculoskeletal: Normal range of motion Extremities: Minimal bilateral lower extremity edema. Neurological: Grossly neurologically intact. Normal speech Skin: no rashes or ecchymosis Lymph: no cervical or supraclavicular lymphadenopathy IVs and Medications Medications Reviewed: Medications were reviewed in detail Lab and Diagnostics Result Diagram: 03/20/1754403/20/17544 Microbiology Blood cultures negative 2 days Respiratory viral PCR negative Strep pneumo antigen negative Legionella antigen negative X-Rays, CTs and MRIs US ABDOMEN IMPRESSION: Cholelithiasis and gallbladder wall thickening. There is also pericholecystic fluid suspicious for acute cholecystitis, although no sonographic Gaines sign or biliary ductal dilatation. Therefore, please correlate clinically and with LFTs. Echogenic liver suggesting diffuse hepatocellular disease/fatty infiltration. Please correlate clinically and with laboratory data CT ANGIO CHEST PULMONARY EMBOLISM IMPRESSION: 1. No evidence for central pulmonary embolism. 2. Bilateral lung nodules or nodular infiltrates. The CT findings are nonspecific. Differential diagnoses include infectious etiology, especially atypical infections, inflammatory condition (such as Juan C's granulomatosis), and less likely neoplasm. Recommend short interval followup after adequate treatment. 3. A 1.0 cm left apical mass. Please see enclosed followup recommendation. 4. Bilateral small pleural effusions. 5. Mediastinal and bilateral lymphadenopathy. 6. Cholelithiasis. No significant discrepancy with the material handler 2nd shift radiology preliminary report. X-RAY CHEST ONE VIEW, PORTABLE IMPRESSION: Patchy bilateral air space opacities may reflect early bronchopneumonia. Assessment & Plan Patient is a 66 year old male with a history of hypertension who presents to the ED via EMS due to a near-syncopal episode. Admitted for bilateral lower lobe pneumonia. Bilateral pneumonia, HCAP, acute in the setting of COPD. Present on admission. Improving. - Treat as HCAP as patient recently seen [place] [facility] [place] last [place], treated for 2 days with ceftriaxone and azithromycin. - Pt received Vancomycin, Zosyn and levofloxacin in ED. Continue by mouth levofloxacin 750 mg for one more day. - Continue Azithromycin and prednisone 40 mg for 2 more days for COPD exacerbation. - COPD not under treatment as outpatient. Will need outpatient PFTs. Will need to be initiated on LABA. - Social work has been consulted to help with setting up an appointment with [facility] and discuss how best to get medication upon discharge, using $4 medications. Elevated LFTs in the setting of fatty liver disease, unknown acuity. Present on admission. Resolving. - Patient is asymptomatic. Ultrasound reveals cholelithiasis however patient is asymptomatic. No indication for surgical consult. - Hep C and HIV labs negative Hypertension chronic. Present on admission. Stable. - Not under treatment. Likely benefit from issues and other antihypertensive regimen as outpatient once his acute illness resolves. - Continue to monitor Solitary pulmonary nodule of the left lung apex, present on admission, stable - CT angio chest showed a spiculated 1.5 cm apical left lung nodule. Given his 40 pack year history, this is suspicious for malignancy. He reports recent night sweats and weight loss. Given its size and spiculated nature, the potential for malignancy is high. - Patient should have CT-guided lung biopsy and PET scan in outpatient setting. - Outpatient PET scan - Outpatient CT guided lung biopsy - Follow-up appointment with the residency clinic will be scheduled by social work. Patient was again instructed to have close follow-up. He verbalized understanding. - Bowel regimen as needed - Antiemetic as needed Disposition: Discharge tomorrow. VTE Mechanical Devices: Intermittant Pneumatic CD Resuscitation Status: CPR: Attempt Resuscitation Attending Statement Patient was seen and examined with house staff. Agree with all attached documentation. Georgina Clarke DO Mar 20, 2017 09:53 Elroy Adair MD Mar 20, 2017 15:53
[2017-03-20 13:03] VITALS: BP 152/73; PULSE 68; RESP 18; O2SAT 96
[2017-03-20 20:54] VITALS: BP 176/77; PULSE 62; RESP 18; O2SAT 98
[2017-03-21] MEDS: Heparin 5,000 Unit/mL Inj SUBQ SCH ×2 (01:13→08:03)
--- NOTE | 2017-03-21 06:06 | NUR ---
NOC PT has slept off and on this shift. Declined a call to MD to request something for sleep. Lungs are CTA and only slightly decreased. PT on RA. V/S WNL. PT independent in room. VOiding in BR. Denies any pain. Traced edema noted to BLE, otherwise assessment is benign. PT is planning for d/c today per MD note. WIll CTM for any changes.
[2017-03-21 06:19] VITALS: BP 138/76; PULSE 57; RESP 18; O2SAT 96
[2017-03-21 06:27] LABS: BASOPHILS % (AUTO) 0.1 % (0-3); EOSINOPHILS % (AUTO) 0.1 % (0-5); MONOCYTES % (AUTO) 7.4 % (4-12); Mean Corpuscular Hemoglobin 30.9 pg (27.0-35.0); Mean Corpuscular Volume 96.5 fL (81-100); NEUTROPHILS % (AUTO) 61.7 % (40-74); Platelet Count 412 bil/L (150-400)
[2017-03-21] MEDS: levoFLOXacin 750 mg Tablet PO SCH (08:03)
[2017-03-21] MEDS: predniSONE 20 mg Tablet PO SCH (08:03)
--- NOTE | 2017-03-21 10:49 | PCM.DIMED ---
Discharge Instructions Date of Service Mar 21, 2017 Dates of Hospitalization Mar 18, 2017 at 03:25 Discharge Diagnosis Discharge Diagnosis pneumonia Medication Instructions Additional med instructions complete course of antibiotics Diet Discharge Diet: No restrictions Activity Discharge Activity: No restrictions Call your provider Call your provider for: Fever or Chills, Shortness of breath, Chest pain, Excessive diarrhea Patient Instructions Patient Instructions need to follow up with audie anthony in regards to lung nodule/mass for biopsy Follow-up with PCP in: 1 week Arnoldo Padron MD Mar 21, 2017 10:49
[2017-03-21] MEDS ORDERED: PRED-508 PO (11:30)
[2017-03-21] MEDS ORDERED: LEVO750T9 PO (11:30)
--- NOTE | 2017-03-21 12:00 | NUR ---
Social Work: Readiness for Discharge D: EMR reviewed. Pt is on day 3 of hospitalization. Per MD in AM multi-disciplinary rounds, pt is medically stable and ready for discharge today. PT is recommending pt return home with FWW, pt is declining. MD order received for PCP appointment. SW called [facility] and set pt up with PCP appointment for Monday 03/26 at 2:00 appointment with 1:45 check in. Information provided to pt for appointment. Pt confirms his friend will provide transport home via POV. SW will continue to follow. SW will continue to follow. A: Pt who is independent at baseline. Pt for whom a FWW has been deemed medically necessary - pt declines. P: Pt to discharge home today with friend via POV. SW called [facility] and set pt up with PCP appointment for Monday 03/26 at 2:00 appointment with 1:45 check in. Information provided to pt for appointment. Per AM multi-disciplinary rounds, no discharge needs identified. SW will continue to follow if needs arise. Juliann Spencer MSW
--- NOTE | 2017-03-21 12:25 | NUR ---
Social Work: Discharge D: EMR reviewed. Pt is on day 3 of hospitalization. Per MD in AM multi-disciplinary rounds, pt is medically stable and ready for discharge today. PT is recommending pt return home with FWW, pt is declining. MD order received for PCP appointment. CARIE called [facility] and set pt up with PCP appointment for Monday 03/26 at 2:00 appointment with 1:45 check in. Information provided to pt for appointment. Pt confirms his friend will provide transport home via POV. SW will continue to follow. A: Pt who is independent at baseline. Pt for whom a FWW has been deemed medically necessary - pt declines. P: Pt to discharge home today with friend via POV. CARIE called [facility] and set pt up with PCP appointment for Monday 03/26 at 2:00 appointment with 1:45 check in. Information provided to pt for appointment. Per AM multi-disciplinary rounds, no discharge needs identified. SW will continue to follow if needs arise. CORNELIUS Nunes Addendum: 03/21/17 at 1418 by GUADALUPE HOSKINS SS CARIE informed by RN that pt's transport plan has changed. CARIE asked for more information and RN requested SW to see pt immediately for change in plan. CARIE asked pt how he would like to transport home, as previous SW note read that pt would schedule his own taxi. Pt stated he would like [facility] transport. CARIE called [facility] to set up transport. CARIE contacted RN to notify RN that pt will need to wait in lobby for pick-up and that [employer] will arrive around 1400. Pt also made aware of process. SW received T/C from RN stating that pt is still waiting in lobby. SW told RN that [employer] does not need to wait with pt in lobby and that transport will arrive and is notified of pt's location and that he will be waiting. CORNELIUS Nunes
[2017-03-21 13:09] VITALS: BP 133/68; PULSE 70; RESP 20; O2SAT 96
--- NOTE | 2017-03-21 13:42 | NUR ---
Faxed [facility] transport form to [facility] requesting transport home at 1400, patient will be in the main lobby and ready for picking supervisor. Updated [facility] [facility] [facility]
--- NOTE | 2017-03-21 13:57 | NUR ---
Discharge Pt d/c home via wc by an aide to be p/u by [employer]. pt denied pain. IV d/c earlier d/t leaking. Discharge info discussed with pt and all questions answered. pt has a f/u appt at residency clinic on 03/26. All personal belongings left with pt.
--- NOTE | 2017-03-21 14:18 | NUR ---
Social Work: RN Communication Update SW informed by RN that pt's transport plan has changed. SW asked for more information and RN requested SW to see pt immediately for change in plan. SW asked pt how he would like to transport home, as previous SW note read that pt would schedule his own taxi. Pt stated he would like [facility] transport. CARIE called [facility] to set up transport. CARIE contacted RN to notify RN that pt will need to wait in lobby for pick-up and that [employer] will arrive around 1400. Pt also made aware of process and that cab will arrive around 1400 - it will not show up exactly at that time. CARIE received T/C from RN stating that pt is still waiting in lobby with [employer]. SW told RN that [employer] does not need to wait with pt in lobby and that transport will arrive and is notified of pt's location and that he will be waiting. CORNELIUS Nunes
--- NOTE | 2017-03-21 16:30 | PCM.DC.MED ---
Discharge Summary Date of Service Mar 21, 2017 Dates of Hospitalization Date of Hospital Admission Mar 18, 2017 at 03:25 Date of Discharge: Mar 21, 2017 Providers: Admitting Physician: Addy Matias MD Primary Care Physician: Nopcp Attending Physician: Addy Matias MD Diagnosis at Time of Discharge Diagnosis at Time of Discharge pneumonia Procedures XRay, CTs & MRIs US ABDOMEN IMPRESSION: Cholelithiasis and gallbladder wall thickening. There is also pericholecystic fluid suspicious for acute cholecystitis, although no sonographic Gaines sign or biliary ductal dilatation. Therefore, please correlate clinically and with LFTs. Echogenic liver suggesting diffuse hepatocellular disease/fatty infiltration. Please correlate clinically and with laboratory data CT ANGIO CHEST PULMONARY EMBOLISM IMPRESSION: 1. No evidence for central pulmonary embolism. 2. Bilateral lung nodules or nodular infiltrates. The CT findings are nonspecific. Differential diagnoses include infectious etiology, especially atypical infections, inflammatory condition (such as Juan C's granulomatosis), and less likely neoplasm. Recommend short interval followup after adequate treatment. 3. A 1.0 cm left apical mass. Please see enclosed followup recommendation. 4. Bilateral small pleural effusions. 5. Mediastinal and bilateral lymphadenopathy. 6. Cholelithiasis. No significant discrepancy with the cook night radiology preliminary report. X-RAY CHEST ONE VIEW, PORTABLE IMPRESSION: Patchy bilateral air space opacities may reflect early bronchopneumonia. Brief History Patient is a 66 year old male with a history of hypertension who presents to the ED via EMS due to a near-syncopal episode. Patient states that when he stood up today he began to feel lightheaded, and called 911. He then walked to his bed, states he nearly passed out, but maintained consciousness. He reports intermittent dizziness when standing up. The patient had a syncopal episode 4 days ago that prompted him to go to [facility]. 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 Associated symptoms include lightheadedness, shortness of breath and a non productive cough. He also reports mild chest pain in bilateral lower ribs, not associated with exertion. He reports night sweats last Saturday night. He reports weight loss of 14 lbs since May 2016. He denies fever, chills, wheezing, N/V/D, or any other complaints. Patient reports that he avoids medical care and has not seen a doctor for years. On admission, BP was 174/74, WBC 9 with 75% neutrophils, Hb 12.3, Hct 37.4. Lactic acid 1.6. AST 93, ALT 56, proBNP 1770, procalcitonin 0.38. D-dimer 2.41. CT angio chest night read: No evidence for PE, moderate sized bilateral pleural effusions, bilateral diffuse reticulonodular densities, spiculated 1.5 cm lesion in left lung apex. Hospital Course Patient is a 66 year old male with a history of hypertension who presents to the ED via EMS due to a near-syncopal episode. Admitted for bilateral lower lobe pneumonia. Bilateral pneumonia, HCAP, acute in the setting of COPD. Present on admission. Improving. - Treat as HCAP as patient recently seen at [facility] within the last week, treated for 2 days with ceftriaxone and azithromycin. - Pt received Vancomycin, Zosyn and levofloxacin in ED. Continue by mouth levofloxacin 750 mg for one more day. - Continue Azithromycin and prednisone 40 mg for 2 more days for COPD exacerbation. - COPD not under treatment as outpatient. Will need outpatient PFTs. Will need to be initiated on LABA. - Social work has been consulted to help with setting up an appointment with [facility] and discuss how best to get medication upon discharge, using $4 medications. Elevated LFTs in the setting of fatty liver disease, unknown acuity. Present on admission. Resolving. - Patient is asymptomatic. Ultrasound reveals cholelithiasis however patient is asymptomatic. No indication for surgical consult. - Hep C and HIV labs negative Hypertension chronic. Present on admission. Stable. - Not under treatment. Likely benefit from issues and other antihypertensive regimen as outpatient once his acute illness resolves. - Continue to monitor Solitary pulmonary nodule of the left lung apex, present on admission, stable - CT angio chest showed a spiculated 1.5 cm apical left lung nodule. Given his 40 pack year history, this is suspicious for malignancy. He reports recent night sweats and weight loss. Given its size and spiculated nature, the potential for malignancy is high. - Patient should have CT-guided lung biopsy and PET scan in outpatient setting. - Outpatient PET scan - Outpatient CT guided lung biopsy - Follow-up appointment with the residency clinic will be scheduled by social work. Patient was again instructed to have close follow-up. He verbalized understanding. Exam Vital Signs (Last) Date Time Temp Pulse Resp B/P Pulse Ox O2 Delivery O2 Flow Rate FiO2 03/21/17 13:09 36.7 70 20 133/68 96 Room Air Exam General: No acute distress Lungs: Clear bilaterally no use of accessory muscles Cardiovascular: S1-S2 present regular rate and rhythm Extremities: No edema no tenderness Neurological: Alert and oriented 3 no focal deficits Abdomen: Nontender nondistended no rebound or guarding Test 03/17/17 23:25 03/18/17 00:30 03/18/17 04:53 03/18/17 05:00 Hold Purple Top Tube Received (Received) Hold Blue Top Tube Received (Received) Hold [place] Top Tube Received (Received) D-Dimer 2.41mg/L FEU (<0.50) Lactic Acid Level 1.6mmol/L (0.4-2.0) Troponin T 0.010ug/L (0.0-0.011) Pro-B-Type Natriuretic Peptide 1770pg/mL (0-210) Hematology Comments Urine Legionella pneumophilia Ag Negative (Negative) Test 03/18/17 16:29 03/19/17 04:30 03/21/17 05:55 Hepatitis C Antibody 0.1s/co ratio (0.0-0.9) HIV (1&2) Ag and Ab, 4th Generation Non reactive (Non Reactive) Procalcitonin 0.20ng/mL (0.00-0.08) White Blood Count 10.3th/mm3 (3.8-10.1) Red Blood Count 3.46mil/mm3 (4.40-5.80) Hemoglobin 10.7g/dL (13.8-17.2) Hematocrit 33.4% (41.0-50.0) Mean Corpuscular Volume 96.5fL (81-100) Mean Corpuscular Hemoglobin 30.9pg (27.0-35.0) Mean Corpuscular Hemoglobin Concent 32.0% (32.0-37.0) Red Cell Distribution Width 12.5% (12.3-15.4) Platelet Count 412bil/L (150-400) Neutrophils (%) (Auto) 61.7% (40-74) Lymphocytes (%) (Auto) 30.2% (14-46) Monocytes (%) (Auto) 7.4% (4-12) Eosinophils (%) (Auto) 0.1% (0-5) Basophils (%) (Auto) 0.1% (0-3) Sodium Level 141mEq/L (134-144) Potassium Level 5.2mEq/L (3.5-5.2) Chloride Level 103mEq/L (97-108) Carbon Dioxide Level 27mmol/L (18-29) Blood Urea Nitrogen 20mg/dL (8-27) Creatinine 0.77mg/dL (0.76-1.27) Estimat Glomerular Filtration Rate 108mL/min (>59) Glucose Level 90mg/dL (60-99) Calcium Level 8.7mg/dL (8.5-10.1) Total Bilirubin 0.2mg/dL (0.0-1.2) Aspartate Amino Transf (AST/SGOT) 48U/L (0-50) Alanine Aminotransferase (ALT/SGPT) 43U/L (0-44) Alkaline Phosphatase 86U/L (25-160) Total Protein 5.1g/dL (6.4-8.4) Albumin 2.5g/dL (3.4-5.0) Microbiology Results Blood cultures negative 2 days Respiratory viral PCR negative Strep pneumo antigen negative Legionella antigen negative Discharge Medications Discharge Medications Levofloxacin (Levaquin) 750 Mg Tablet 750 MG PO DAILYAC Prescribed by: ARNOLDO CARSON MD Prednisone (Deltasone) 20 Mg Tablet 40 MG PO DAILY Prescribed by: ARNOLDO CARSON MD Additional med instructions complete course of antibiotics Followup Plan Discharge Diet: No restrictions Discharge Activity: No restrictions Patient Instructions need to follow up with [facility] in regards to lung nodule/mass for biopsy Follow-up with PCP in: 1 week Arnoldo Carson MD Mar 21, 2017 16:30
== END 2017-03-21 13:44 | disposition home or self-care (01) | DRG 195 ==
LOC: SED 23:20 → PCC 03-18 03:25 → MPC 03-19 20:22
PROVIDERS: ADMIT Internal Medicine; ATTEND Internal Medicine
DX: J18.9 Pneumonia, unspecified organism (principal); I10 Essential (primary) hypertension; Z87.891 Personal history of nicotine dependence

== ENCOUNTER 2017-05-23 00:02 | Observation (INO) | payer OTHER ==
[2017-05-23] VITALS (25 sets, daily range): BP systolic 120–201; BP diastolic 65–90; PULSE 58–87; RESP 18–34; O2SAT 94–100
[~2017-05-23] VITALS: Ht 175.3 cm; Wt 71.7 kg
[~2017-05-23 00:02] MED LIST: LEVO750T9 PO; PRED-508 PO
[2017-05-23] MEDS ORDERED: ALBU8.5H2 INHALATION (07:33)
[2017-05-23 07:53] LABS: INR 0.94 ratio
[2017-05-23] MEDS ORDERED: Flumazenil 0.1 mg/mL 5 mL Inj IV ONE (08:17)
[2017-05-23] MEDS ORDERED: 0.9% Sodium Chloride 500 ML IV SCH (08:20)
[2017-05-23] MEDS: fentaNYL-PF 50 mCg/mL 2 mL Inj IVPUSH PRN ×2 (09:20→19:24)
--- NOTE | 2017-05-23 10:06 | DRSVH ---
PROCEDURE: X-RAY CHEST ONE VIEW ([id number]) INDICATIONS: Status post left lung biopsy. TECHNIQUE: One view of the chest was acquired. COMPARISON: [facility], CR, XR CHEST 1VW (PORTABLE), 03/17/2017, 23:46. [facility], CT, CT ANGIO CHEST PE, 03/18/2017, 1:33. FINDINGS: Surgical changes and devices: None. Lungs and pleura: There is a moderate-sized left pneumothorax measuring approximately 3.4 cm at the apex and 2.5 cm laterally at the left lung base. There is slight flattening of the left hemidiaphrag m may be due to patient's COPD or reflect early changes of tension. No definite mediastinal shift. No pleural effusions. There is hyperinflation of the lungs with flattening of the hemidiaphragms comp atible with COPD. a left apical nodule is redemonstrated measuring approximately 1.4 cm. Mediastinum: Mediastinal contours appear unchanged. Heart size is normal. Bones and chest wall: No suspicious bony lesions. Overlying soft tissues appear unremarkable. IMPRESSION: 1. Moderate-sized left pneumothorax with possible early tension along the left hemidiaphragm. 2. Left apical pulmonary nodule redemonstrated. Findings were discussed with Dr. De La O on 05/23/17 at 9:50 AM. Patient is being closely monitored. Dictated by: Ted Jordan M.D. on 05/23/2017 at 9:52 Approved by: Ted Jordan M.D. on 05/23/2017 at 10:04
--- NOTE | 2017-05-23 11:04 | DRSVH ---
PROCEDURE: CT-GUIDED BIOPSY OF THE LUNG OR MEDIASTINUM ([id number]) Sedation analgesia for 12 minutes. INDICATIONS: LEFT LUNG MASS TECHNIQUE: The indications, alternatives, benefits, risks, and possible complications of the procedure were comm unicated to the patient. Informed written consent from the patient was obtained and placed in the art. Continuous EKG and hemodynamic monitoring was started by trained personnel. For radiation dose reduction, the following was used: automated exposure control, adjustment of mA and/or kV according to patient size. The patient was brought to the CT suite and route driver coin machines spiral CT imaging was performed with localization g rid. The appropriate site for percutaneous access to the biopsy target was marked, was prepped and d raped sterilely, and was infused with local anaesthesia. Under CT guidance, a core biopsy trocar and needle set was advanced to the biopsy target, and specimen(s) were obtained. The trocar and needle were then removed, and the patient was sent for post-procedure monitoring. COMPARISON: None. FINDINGS: Biopsy site: Left upper lobe Needle: 20 gauge biopsy needle with introducer trocar. Number of passes: 4 Medications: 1% lidocaine for local anaesthesia. IV Fentanyl and Versed for conscious sedation for 12 minutes (see nursing record). Complications: Mild left pneumothorax. IMPRESSION: Successful CT-guided biopsy of left upper lobe. Dictated by: Alena De La O M.D. on 05/23/2017 at 11:02 Approved by: Alena De La O M.D. on 05/23/2017 at 11:03
--- NOTE | 2017-05-23 13:18 | DRSVH ---
PROCEDURE: X-RAY CHEST ONE VIEW, PORTABLE ([id number]) INDICATIONS: POST LUNG BX TECHNIQUE: One view of the chest was acquired. COMPARISON: [facility], CT, CT BX LUNG MEDIASTINUM, 05/23/2017, 8:27. [facility], CR, XR CHEST 1VW, 05/23/2017, 9:21. FINDINGS: Surgical changes and devices: None. Lungs and pleura: No definite change in left pneumothorax since earlier same day at 0921 hours. Mediastinum: Mediastinal contours appear normal. Heart size is normal. Bones and chest wall: No suspicious bony lesions. Overlying soft tissues appear unremarkable. IMPRESSION: Grossly unchanged appearance of moderate left pneumothorax since 0921 hours earlier same day. Personally discussed with Dr. De La O 1316 hours 05/23/17 Dictated by: Froilan Sampson M.D. on 05/23/2017 at 13:06 Approved by: Froilan Sampson M.D. on 05/23/2017 at 13:16
--- NOTE | 2017-05-23 13:26 | DRSVH ---
PROCEDURE: X-RAY CHEST ONE VIEW, PORTABLE ([id number]) INDICATIONS: POST LUNG BX TECHNIQUE: One view of the chest was acquired. COMPARISON: [facility], CR, XR CHEST 1VW (PORTABLE), 05/23/2017, 11:20. FINDINGS: Surgical changes and devices: None. Lungs and pleura: There is an unchanged appearance of mild to moderate left pneumothorax with flatten ing of the left hemidiaphragm. No mediastinal shift. Left apical nodules unchanged. Mediastinum: Mediastinal contours appear normal. Heart size is normal. Bones and chest wall: No suspicious bony lesions. Overlying soft tissues appear unremarkable. IMPRESSION: Unchanged left pneumothorax. Dictated by: Alena De La O M.D. on 05/23/2017 at 13:24 Approved by: Alena De La O M.D. on 05/23/2017 at 13:25
--- NOTE | 2017-05-23 15:36 | DRSVH ---
PROCEDURE: X-RAY CHEST ONE VIEW, PORTABLE ([id number]) INDICATIONS: POST LUNG BX TECHNIQUE: One view of the chest was acquired. COMPARISON: [facility], CR, XR CHEST 1VW (PORTABLE), 05/23/2017, 12:58. FINDINGS: Surgical changes and devices: None. Lungs and pleura: A small to moderate-sized left pneumothorax appears similar in size to the prior s tudy given differences in lung volumes. Left apical nodule redemonstrated. Right lung is clear. Mediastinum: Mediastinal contours appear unchanged. Heart size is normal. Bones and chest wall: No suspicious bony lesions. Overlying soft tissues appear unremarkable. IMPRESSION: 1. Left pneumothorax appears similar to the prior study. Dictated by: Ted Jordan M.D. on 05/23/2017 at 15:32 Approved by: Ted Jordan M.D. on 05/23/2017 at 15:34
[2017-05-23] MEDS ORDERED: Ondansetron 2 mg/mL 2 mL Inj IVPUSH PRN (18:20)
[2017-05-23] MEDS ORDERED: Polyethylene Glycol (PEG) 17 Gm Powder PO PRN (18:20)
[2017-05-23] MEDS ORDERED: Alum-Mag Hydrox-Simeth 30 mL Suspension PO PRN (18:20)
[2017-05-23 19:05] LABS: BASOPHILS % (AUTO) 0.4 % (0-3); EOSINOPHILS % (AUTO) 1.4 % (0-5); MONOCYTES % (AUTO) 10.2 % (4-12); Mean Corpuscular Volume 96.1 fL (81-100); NEUTROPHILS % (AUTO) 55.2 % (40-74); Platelet Count 263 bil/L (150-400)
--- NOTE | 2017-05-23 19:07 | PCM.HPMED ---
Subjective Date of Service May 23, 2017 Primary Provider: Admitting Physician: Primary Care Physician: Aundrea Holden DO Attending Physician: Aundrea Holden DO Admit Status: Admit to [facility] Team Chief Complaint: left-sided pneumothorax History of Present Illness: Georgi Badillo is a 66 year old, male, with a history of COPD, hypertension, and lung mass, who is referred by surgery status post biopsy of the left lung which resulted in a pneumothorax. CT angio chest on 03/18/17 showed a spiculated 1.5 cm apical left lung nodule and given his 40 pack year history, this is suspicious for malignancy so a lung biopsy was performed. After the lung biopsy , patient experienced chest wall pain and shortness of breath and was found to have a moderate-sized left pneumothorax on Chest Xray. Patient was placed on up to 10 L of supplemental oxygen. Repeat chest x-ray X4 shows that the pneumothorax is stable and patient's pain resolved with improvement in the shortness of breath. Surgery, Dr. Ocampo, was consulted and does not believe that a chest tube is indicated at this time. Surgery is aware that we are observing the patient overnight and will be ready in case patient needs intervention. Patient has a 40 pack year history of smoking and quit in September 2016. With regards to his COPD, he is not on home oxygen and only uses albuterol as needed for SOB and wheezing. On ROS, patient admits to shortness of breath but states that he otherwise feels well. He denies incisional pain, chest pain, orthopnea, cough, sputum production, palpitations, headache, changes to vision/hearing, dizziness, lightheadedness, edema, numbness or tingling of upper or lower extremities, recent illness, constipation, diarrhea. Review of Systems: The comprehensive review of systems was conducted with the patient and found to be negative except as above in the history of present illness. Allergies Coded Allergies: No Known Allergies (Unverified , 03/17/17) Home Medications Albuterol inhaler as needed . PMH COPD diagnosed 4 years ago One syncopal episode this year for which he was hospitalized. Hypertension, presumed stable, not on antihypertensive medications Surgical History Surgical Hx: all teeth removed 20 years ago. Family History Family Hx: Mother at 76 from brain aneurism. Grandmother at 90 from stroke. Grandfather from stroke at unknown age. Social History Hx Alcohol Use: No Hx Substance Use: No Smoking Status: Former Smoker (40 pack year history of smoking. Quit in October 02) Years of Smokin Living Arrangement: Alone Additional Information Social history : Denies recent travel. Denies use of drugs or alcohol. Drinks 2-3 cups of coffee/day and 3-4 cans of coke/day. Quit smoking 09/2016 with a 40 pack year history. Former , worked around [employer]. Retired from working 26 years at [employer]. Claims to maintain a balanced diet. Exam Vital Signs Vital Sign - Last Date Time Temp Pulse Resp B/P Pulse Ox O2 Delivery O2 Flow Rate FiO2 05/23/17 18:05 78 05/23/17 18:04 36.8 26 182/82 100 Nasal Cannula 3.00 Exam General: Patient is lying comfortably on bed, AAOX3, not in acute distress, cooperative and pleasant. HEENT: head normocephalic and atraumatic, PERRLA, EOMI, no scleral icterus, noninjected conjunctiva, exotropia right eye Neck: neck supple, non-tender, no lymphadenopathy, trachea midline, no JVD CV: regular rate and rhythm, s1 and s2 heard, no murmur, radial pulses 2+ and equal bilaterally, no rubs murmurs or gallops, no edema Lungs: barrel-chested, diminished lung sounds on the left, on supplemental oxygen Abdomen: Protuberant abdomen, normoactive bowel sounds on 4Q, soft, non- distended, non-tender to palpation, no organomegally, Skin: warm and dry Musculoskeletal: 5/5 UE and LE strength bilaterally, full ROM bilaterally Neuro: Grossly neurologically intact, cranial nerves II through XII intact, no dyskinesia, dysmetria Psych: Normal mood and affect Lab and Diagnostics Result Diagram: 05/23/17 0730 X-Rays, CTs and MRIs PROCEDURE: X-RAY CHEST ONE VIEW ([id number]) IMPRESSION: 1. Moderate-sized left pneumothorax with possible early tension along the left hemidiaphragm. 2. Left apical pulmonary nodule redemonstrated. Findings were discussed with Dr. De La O on 05/23/17 at 9:50 AM. Patient is being closely monitored. Dictated by: Ted Jordan M.D. on 05/23/2017 at 9:52 PROCEDURE: X-RAY CHEST ONE VIEW, PORTABLE ([id number]) INDICATIONS: POST LUNG BX IMPRESSION: 1. Left pneumothorax appears similar to the prior study. Dictated by: Ted Jordan M.D. on 05/23/2017 at 15:32 Additional Diagnostics: Lung Biopsy on 05/23/2017 FINDINGS: Biopsy site: Left upper lobe Needle: 20 gauge biopsy needle with introducer trocar. Number of passes: 4 Medications: 1% lidocaine for local anaesthesia. IV Fentanyl and Versed for conscious sedation for 12 minutes (see nursing record). Complications: Mild left pneumothorax. IMPRESSION: Successful CT-guided biopsy of left upper lobe. Dictated by: Alena De La O M.D. on 05/23/2017 at 11:02 Assessment & Plan Georgi Badillo is a 66 year old, male, with a history of COPD, hypertension, and lung mass, who is referred by surgery status post biopsy of the left lung which resulted in a left-sided pneumothorax. Chest tube was not placed and patient is admitted for observation. Left-sided pneumothorax, present on admission, ongoing. -Status-post left lung biopsy -CXR image reviewed demonstrates Moderate-sized left pneumothorax with possible early tension along the left hemidiaphragm and Left apical pulmonary nodule redemonstrated -CXR X4 showed that the pneumothorax remained unchanged and stable, no chest tube has been placed -Patient reports mild shortness of breath, but denies pain -Continue supplemental oxygen, keeping O2 saturation between 88-92% -Surgery, Dr. Ocampo has been consulted and is aware in case patient needs chest tube Hypertension, present on admission, ongoing. -Patient reports that his blood pressure at home is stable <140/90 -His blood pressure on admit was elevated -We will start patient on labetolol 100 mg po bid Chronic obstructive pulmonary disease, present on admission, ongoing -Continue Albuterol as needed -Supplemental Oxygen but keep O2 saturation between 88-92% Solitary pulmonary nodule of the left lung apex, present on admission, stable - CT angio chest on 03/18/17 showed a spiculated 1.5 cm apical left lung nodule -Lung biopsy completed on 05/23/17 -Follow-up with pathology results Code Status: Full Code Pain Evaluation: Adequate Pain Control GI Prophylaxis: H2 judy VTE Prophylaxis: Sub-Q Heparin (Unfractionated) Resuscitation Status: CPR: Attempt Resuscitation Time spent greater than 45 min Attending Statement The patient was seen and examined together with Dr. Burton on 05/23/17 and I have added additional information to the note above. Clau Burton DO May 23, 2017 18:32 Kanika Luna DO May 24, 2017 19:17
[2017-05-23] MEDS ORDERED: Albuterol HFA 60 Puff 8 Gm Inhaler INHALATION SCH (19:10)
[2017-05-23] MEDS: Albuterol 2.5 mg/3 mL Inhalation Solution NEB SCH (20:00)
--- NOTE | 2017-05-23 20:51 | PCM.ADCARE ---
Advance Care Planning Note Plan: Date: 05/23/2017 Diagnosis: Pneumothroax after biopsy Lung mass COPD HTN Purpose of encounter: Goals of care Parties in attendance: The patient, Dr. Micheal Zheng Decisional capacity: Good Plan: The patient is aware of the current diagnosis and would like to continue to be full code. The patient understands that this means for chest compressions , intubation, pressors, and all measures involved with CPR. The patient also states that he agrees to blood transfusions as well. CODE STATUS: Full code Time spent with advanced care planning: Greater than 16 minutes Kanika Luna DO May 23, 2017 20:51
[2017-05-23] MEDS: Heparin 5,000 Unit/mL Inj SUBQ SCH (23:08)
--- NOTE | 2017-05-23 23:17 | CONS ---
[address] [address] CONSULTATION REPORT PATIENT: DEMIAN LIANG : 1950 MR#: [id number] ADMIT: 05/23/2017 JOB ID: [id number] DATE OF SERVICE: 05/23/2017 CHIEF COMPLAINT: A 66-year-old gentleman with a left iatrogenic pneumothorax seen in consultation at the request of Alena Leal MD. HISTORY OF PRESENT ILLNESS: The patient is a 66-year-old gentleman who was found to have a spiculated 1.5 cm left apical lung nodule on a CT chest angiogram on March 18, 2017. He came in for a CT-guided lung biopsy today and after that he had some left-sided chest pain and shortness of breath and the follow-up x-ray showed moderate sized left pneumothorax. He was placed on 10 L supplemental oxygen and with follow-up x-rays through the day, his pain resolved and his shortness of breath improved and the pneumothorax on the chest x-ray stayed stable. I was consulted by Dr. Lael to evaluate him for possible tube thoracostomy if there is further clinical deterioration. OTHER MEDICAL PROBLEMS: 1. Chronic obstructive pulmonary disease. 2. Hypertension. PRIOR OPERATIONS: Teeth extraction. MEDICATIONS AT HOME: Albuterol. ALLERGIES: No known drug allergies. SOCIAL HISTORY: Quit smoking in September after 40 pack years. He lives alone. He does not use recreational drugs or alcohol. FAMILY HISTORY: Mother had a brain aneurysm. Grandfather had a stroke and grandmother had a stroke. REVIEW OF SYSTEMS: Twelve point review of systems negative other than the pertinent positives noted in the history of present illness and other medical problems. INVESTIGATIONS: Labs from May 23, 2017, WBC 7.4, hemoglobin 12.6, platelet count 263. Creatinine 1.08. CT-guided biopsy on May 23, 2017: Successful CT-guided biopsy, tissue pending. Chest x-ray from 9:21 a.m. showed moderate left pneumothorax which continued to be stable after that at 11:20 a.m., 12:58 p.m. and 15:[address] angiogram from March 18, 2017, showed cholelithiasis, mediastinal and bilateral hilar lymphadenopathy and 1 cm left apical mass and bilateral small pleural effusions and some bilateral infiltrates. PHYSICAL EXAMINATION: A 66-year-old gentleman in no acute distress. BMI 23.3, temperature 36.8, pulse 74, respiratory rate 20, blood pressure 187/84, saturating 100% on 3 L nasal cannula. Eyes: Normal pupils, conjunctivae. Ears, nose, and throat: Normal external appearance. Neck: No jugular venous distention. Respiratory: Decreased air entry on the left but otherwise normal effort. Cardiovascular: Regular rate and rhythm. Gastrointestinal: Abdomen is soft. Neurologic: No gross deficits. Psych: Alert, appropriate. ASSESSMENT AND PLAN: Iatrogenic pneumothorax after lung biopsy. Discussed the pathophysiology and treatment rationale and recommended observation overnight with repeated chest x-ray. Discussed the possibility of needing a tube thoracostomy depending on clinical progression. The patient agrees with the plan to hold off on tube thoracostomy now and please call with any concerns about deteriorating respiratory status. Otherwise, will follow up with x-rays periodically.
[2017-05-24] VITALS (8 sets, daily range): BP systolic 105–179; BP diastolic 56–82; PULSE 53–70; RESP 14–20; O2SAT 93–98
[2017-05-24 03:42] LABS: Mean Corpuscular Hemoglobin 30.3 pg (27.0-35.0)
[2017-05-24] MEDS: Albuterol 2.5 mg/3 mL Inhalation Solution NEB SCH ×2 (04:00)
[2017-05-24] MEDS: Heparin 5,000 Unit/mL Inj SUBQ SCH ×2 (06:47→14:00)
--- NOTE | 2017-05-24 08:26 | DRSVH ---
PROCEDURE: X-RAY CHEST ONE VIEW, PORTABLE ([id number]) INDICATIONS: 66-year-old male with pneumothorax. TECHNIQUE: One view of the chest was acquired. COMPARISON: [facility], CT, CT ANGIO CHEST PE, 03/18/2017, 1:33. [facility], CT, CT BX LUNG MEDIASTINUM, 05/23/2017, 8:27. [facility], CR, XR CHEST 1VW (PORTABLE), , 15:22. [facility], CR, XR CHEST 1VW (PORTABLE), 05/23/2017, 12:58. [facility], CR, XR CHEST 1VW (PORTABLE), 05/23/2017, 11:20. FINDINGS: Surgical changes and devices: None. Lungs and pleura: Basal left pneumothorax has slightly decreased since May 23, 2017. No acute ai rspace opacities. Linear left mid lung scarring is again noted. The recently biopsied left upper lung nodule is again noted. Mediastinum: Mediastinal contours appear normal. Heart size is normal. Bones and chest wall: No suspicious bony lesions. Overlying soft tissues appear unremarkable. IMPRESSION: Basal left pneumothorax has slightly decreased in size since yesterday. Dictated by: Olman Moctezuma M.D. on 05/24/2017 at 8:22 Approved by: Olman Moctezuma M.D. on 05/24/2017 at 8:25
--- NOTE | 2017-05-24 15:54 | PCM.DIMED ---
Clau Burton DO 05/24/17 1027: Discharge Instructions Date of Service May 24, 2017 Dates of Hospitalization May 23, 2017 at 17:57 Discharge Diagnosis Discharge Diagnosis Iatrogenic Left-sided pneumothorax Hypertension Chronic obstructive pulmonary disease Solitary pulmonary nodule of the left lung apex Medication Instructions Additional med instructions Because you came in with high blood pressure, we started you on Labetalol 100 mg twice daily to help lower your blood pressure Diet Discharge Diet: No restrictions Activity Discharge Activity: No restrictions Call your provider Call your provider for: Fever or Chills, Shortness of breath, Bleeding, Chest pain, Vomitting, Excessive diarrhea, Weakness (unilateral) Patient Instructions Patient Instructions You came to the hospital yesterday to get a biopsy of a lung nodule of your left lung. During the procedure, you developed a left-sided pneumothorax, which is a collapsed portion of the lung. This occurs when air leaks into the space between your lungs and chest wall. This air pushes on the outside of your lung and causes it to collapse. Initially you complained of some chest pain and shortness of breath, which eventually resolved. We did multiple X-rays yesterday and saw that the pneumothorax remained stable. We contacted surgery who talked to you about holding off on putting the chest tube and just observe to make sure that you continue to remain stable. We also did a repeat Chest X- ray this morning and that showed that the pneumothorax improved and got smaller compared to yesterday. Surgery saw you this morning and also cleared you to go home. You will need to follow-up with your primary care doctor and will need to get a repeat Chest X-ray in a week. If you start to develop worsening shortness of breath, however, please go to the emergency room. In addition, your blood pressure was high when you presented to the hospital. You mentioned that you do have a history of high blood pressure but you don't take any medications for it because they are stable at home. We have started you on Labetalol 100 mg twice a day to help lower your blood pressure. You can revisit this with your primary care doctor to see what they recommend. As we discussed, your lung biopsy showed evidence of fungus growth. Our infectious disease doctor, Dr. Morrison reviewed your records and saw you this afternoon. He ordered some more labs to figure out what kind of fungus it is so that he can treat you appropriately. He suggests that you follow-up with him as an outpatient. You have an appointment with Dr. Morrison next May 29. Follow-up plan Follow-up with Dr. Morrison on May 29 Follow-up with your Primary care doctor in 1 week and get a repeat Chest Xray Follow-up Provider: Shiva Morrison MD Follow-up with PCP in: 1 week (saturday) Provider: Aundrea Holdne DO Follow-up in: 1 week Kanika Luna DO 05/24/17 1914: Discharge Instructions Attending's Statement The patient was seen and examined together with Dr. Burton on 05/24/17 and I agree with the history, exam and plan as outlined in the note above. Clau Burton DO May 24, 2017 10:27 Kanika Luna DO May 24, 2017 19:14
[2017-05-24] MEDS ORDERED: LABE100T4 PO (15:55)
--- NOTE | 2017-05-24 16:29 | CONS ---
[address] [address] CONSULTATION REPORT PATIENT: DEMIAN LIANG : 1950 MR#: [id number] ADMIT: 05/23/2017 JOB ID: [id number] DATE OF SERVICE: 05/24/2017 INFECTIOUS DISEASE CONSULTATION: I thank Dr. Kanika Luna for this timely consult. REASON FOR CONSULTATION: Fungal pulmonary mass. HISTORY OF PRESENT ILLNESS: The patient is a 66-year-old gentleman who is a long-time resident of the local area. He was born and raised on [facility], went to high school at [employer], and except for four years in the in [facility] he has spent his whole life in this area. He was a fairly heavy cigarette smoker until a few months ago, when he quit, and has been diagnosed with COPD in the past few years. His medical problems essentially consist of COPD and hypertension. Some months ago he was felt to have a pneumonia and an x-ray disclosed findings of a left lung nodule. This was a spiculated nodule about 1.5 cm and was felt to be probably malignant as the patient has had an insidious 30 pound weight loss over the last 12 months, with some chronic fatigue, as well as his usual shortness of breath. He was eventually referred to Interventional Radiology for a percutaneous biopsy of this nodule as a definitive means to make a diagnosis of what was probably felt to be lung malignancy. Following the biopsy, which was done earlier yesterday, he developed a pneumothorax with some chest pain and shortness of breath and was therefore put on supplemental oxygen and admitted here to the hospital. He has been observed here over the last day or so in the hospital, watching his pneumothorax without a chest tube, in the hopes that it would eventually resolve and that in fact seems to be happening. The patient was about to be discharged this morning when an urgent call came in from pathology and they reported that there was actually a fungal process ongoing in his left chest rather than a malignancy and for that reason I have been consulted. The patient tells me, aside from his weight loss and perhaps a slight increase in some chronic fatigue, he has not felt especially bad the past year. He tells me he can ambulate about a mile before he gets too short of breath and has to quit. He quit smoking at the end of 2015 and has not been a significant consumer of alcohol for many many years. He reports he does not work in the garden and rather lives in an apartment in [place] and is not out much except for his daily walk. He did spend four years at [facility] around [place] in the early to mid 70s after high school, but other than that has not been back to the [facility] nor has he traveled overseas. He does not have any pets, nor does he have any unusual hobbies. PAST MEDICAL HISTORY: 1. COPD. 2. Hypertension. 3. History of syncope. 4. Edentulous. SOCIAL HISTORY: The patient used to drink significantly but quit many years ago. He was a heavy smoker until about August, when he quit completely. He does not use illicit drugs and he lives alone in an apartment in [place]. FAMILY HISTORY: Negative for any history of TB in first- or second-degree relatives. REVIEW OF SYSTEMS: The patient has had 30 pounds weight loss over the last year. No night sweats, fevers, chills, or significant headaches. No new ocular complaints. No trouble swallowing. Note that he had all his teeth removed about 20 years ago. No pharyngitis. No stiff neck. He has minimal dry cough, some shortness of breath with exertion on the basis of his COPD, but it is not terribly bad by his report. No chest pain. No significant nausea, vomiting, diarrhea. No dysuria. No swelling of the joints. No neuropathy. Remainder of the review of systems is negative. PHYSICAL EXAMINATION: Reveals an afebrile gentleman temperature 36.9, pulse 58, respiratory rate 20, blood pressure 136/60. He is saturating well on room air. Certainly in no distress, does not have a chest tube, and is talking about going home. His mental status is quite clear. Mood and affect are appropriate. There is no temporal wasting. Eyes without conjunctivitis or scleral icterus. His oral cavity is notable for the fact he is edentulous. There is no thrush, hairy leukoplakia, or pharyngitis. His neck is supple, without supraclavicular nodes. His lungs relatively clear, with an occasional crackle in the bases. Cardiac tones distant. Regular rate and rhythm. Abdomen soft, nontender, without organomegaly. He does not have a Bustillos. There is no suprapubic fullness. There is no inguinal adenopathy. No evidence of synovitis. He has a little bit of venous stasis changes bilaterally, but minimal. His extremities are fairly well perfused and without evidence of skin breakdown, edema, or diminished pulses. Neurologically he is intact. LABORATORY: Labs include a white count 7000, basically normal diff. Creatinine 0.96. Albumin 3.3. No recent micro studies are available. IMAGING: Includes the chest x-ray done today, which I reviewed. It shows a small and decreasing pneumothorax. I also reviewed the CT scan which was done back in early March, at which time the patient was being evaluated for pneumonia. Back then his chest x-ray showed some patchy changes consistent with pneumonia which were appropriately treated, but the CT scan showed the left apical spiculated mass which was concerning in terms of possible malignancy and eventually led to the biopsy performed at this time. I called and spoke to the pathologist in great detail. He tells me that though there was not enough material available to say for sure from this very small biopsy, he thinks this is most consistent with aspergillosis and looks more like Aspergillus than Mucor, Rhizopus, or some other fungus. There is an acute angle branching and the thickness of the hyphae tend to be monotonous, which would suggest Aspergillus over the other molds. 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 This is a condition which can affect people with underlying chronic lung disease, especially chronic obstructive pulmonary disease, and usually manifests with chronic cough, malaise, and weight loss. This patient would seem to be a setup for that with his underlying chronic obstructive pulmonary disease and I think that makes the most sense. It would be nice to go ahead definitively prove the diagnosis, however, before we initiate therapy which will likely be quite lengthy. The usual antifungal therapy is six months of either itraconazole, posaconazole, or voriconazole. RECOMMENDATIONS: 1. I have written an order for the remaining paraffin sample to be sent for fungal PCR at the [facility] and I have discussed this with the supervisor photocomposition in the pathology department, as well as with the pathologist in [place]. 2. Additional studies ordered will include galactomannan, Aspergillus antibodies, a monitoring CRP, and an HIV, and I have written for those orders. 3. I think the patient could reasonably be discharged at any time but he will need to see me in clinic on May 29, at which time I hope we have a final diagnosis and we can initiate therapy. 4. Standard treatment here would be six months of the antifungal agents with close followup in terms of radiographs every couple of months and CRP as well as perhaps monitoring of the Aspergillus antibodies if they are in fact elevated. 5. I also discussed this case informally with the pulmonary attending for his ideas to this afternoon. Thank you for this fascinating consult.
--- NOTE | 2017-05-24 17:09 | PATH ---
SURGICAL PATHOLOGY Attending Physician:See Additional MD CASE STATUS: Signed Out PATIENT NAME: DEMIAN LIANG PID: [id number] : 1950 DATE COLLECTED:05/23/2017 20:10 SPECIMEN: Lung Biopsy CLINICAL HISTORY: LEFT LUNG MASS 1). LEFT LUNG APEX FINAL DIAGNOSIS: Left Lung Mass, [place], Biopsy: Positive for numerous branching fungal hyphae. Negative for neoplasm. ICD10: R91.8 NOTE: Correlation with microbiology studies is required for speciation. As part of routine senior quality assurance engineer, Dr. Mays has reviewed this case and agrees with the above interpretation. Dr. Stefan Juares reported the findings to Dr. Shawn Holden on 05/24/2017 at 11:30 a.m., discussed the findings with Dr. De La O at 11:40 a.m., and discussed the findings with Dr. Burton at 11:45 a.m. GROSS DESCRIPTION: The specimen is received in one formalin filled container labeled with the patient's name, sublabeled "left lung apex" and consists of multiple tiny fragments of foreign negotiate tissue which aggregate to 0.5 x 0.2 x 0.1 CM. The specimen is filtered and entirely submitted in one cassette. 05/23/2017DC ICD-9 CODES: CPT CODES: 1: 44572 PROCEDURE/ADDENDA: Addendum SPI Addendum Diagnosis This case was forwarded to the [facility], [place], [place] for Fungal Detection by PCR (reported 06/05/2017) and no fungal DNA is detected. Please see their report for more details. Though unequivocal fungal forms are seen on H&E stain, it should be noted that formalin fixation dramatically reduces the sensitivity of this PCR assay due to reduced template yield and quality. Correlation with any concurrent cultures, and if clinically indicated, repeat biopsy (for culture or molecular studies in addition to histology) may be contributory. Addendum Comment {Not Entered} Electronically Signed Out Stefan Juares MD, Ph.D. Electronically Signed Out Stefan Juares MD, Ph.D. [facility], [place] [address] Technical component performed at [facility], [facility] [address], [place], [address]
--- NOTE | 2017-05-24 20:04 | PCM.DC.MED ---
Discharge Summary Date of Service May 24, 2017 Dates of Hospitalization Date of Hospital Admission May 23, 2017 at 17:57 Date of Discharge: May 24, 2017 Providers: Admitting Physician: Aundrea Holden DO Primary Care Physician: Aundrea Holden DO Attending Physician: Kanika Luna DO Diagnosis at Time of Discharge Diagnosis at Time of Discharge Iatrogenic Left-sided pneumothorax Hypertension Chronic obstructive pulmonary disease Solitary pulmonary nodule of the left lung apex Consultations Surgery, Dr. Ocampo Infectious Disease, Dr. Morrison Procedures XRay, CTs & MRIs PROCEDURE: X-RAY CHEST ONE VIEW, PORTABLE ([id number]) IMPRESSION: Basal left pneumothorax has slightly decreased in size since yesterday. Dictated by: Olman Moctezuma M.D. on 05/24/2017 at 8:22 PROCEDURE: X-RAY CHEST ONE VIEW ([id number]) IMPRESSION: 1. Moderate-sized left pneumothorax with possible early tension along the left hemidiaphragm. 2. Left apical pulmonary nodule redemonstrated. Findings were discussed with Dr. De La O on 05/23/17 at 9:50 AM. Patient is being closely monitored. Dictated by: Ted Jordan M.D. on 05/23/2017 at 9:52 PROCEDURE: X-RAY CHEST ONE VIEW, PORTABLE ([id number]) INDICATIONS: POST LUNG BX IMPRESSION: 1. Left pneumothorax appears similar to the prior study. Dictated by: Ted Jordan M.D. on 05/23/2017 at 15:32 Other Diagnostics Lung Biopsy on 05/23/2017 FINDINGS: Biopsy site: Left upper lobe Needle: 20 gauge biopsy needle with introducer trocar. Number of passes: 4 Medications: 1% lidocaine for local anaesthesia. IV Fentanyl and Versed for conscious sedation for 12 minutes (see nursing record). Complications: Mild left pneumothorax. IMPRESSION: Successful CT-guided biopsy of left upper lobe. Dictated by: Alena De La O M.D. on 05/23/2017 at 11:02 Brief History Georgi Badillo is a 66 year old, male, with a history of COPD, hypertension, and lung mass, who is referred by surgery status post biopsy of the left lung which resulted in a pneumothorax. CT angio chest on 03/18/17 showed a spiculated 1.5 cm apical left lung nodule and given his 40 pack year history, this is suspicious for malignancy so a lung biopsy was performed. After the lung biopsy , patient experienced chest wall pain and shortness of breath and was found to have a moderate-sized left pneumothorax on Chest Xray. Patient was placed on up to 10 L of supplemental oxygen. Repeat chest x-ray X4 shows that the pneumothorax is stable and patient's pain resolved with improvement in the shortness of breath. Surgery, Dr. Ocampo, was consulted and does not believe that a chest tube is indicated at this time. Surgery is aware that we are observing the patient overnight and will be ready in case patient needs intervention. Patient has a 40 pack year history of smoking and quit in September 2016. With regards to his COPD, he is not on home oxygen and only uses albuterol as needed for SOB and wheezing. Patient was observed overnight and denied symptoms of SOB or chest pain. No longer required oxygen in the morning. CXR in the morning showed evidence of some improvement in the pneumothorax. Patient was seen by Surgery, Dr. Ocampo and cleared patient for discharge. Pathology results from lung biopsy came back positive for fungus. Infectious Disease, Dr. Morrison was consulted and he ordered various labs as well as suggested outpatient follow-up at his clinic [facility] Georgi Badillo is a 66 year old, male, with a history of COPD, hypertension, and lung mass, who is referred by surgery status post biopsy of the left lung which resulted in a left-sided pneumothorax. Chest tube was not placed and patient is admitted for observation. Iatrogenic Left-sided pneumothorax, present on admission, ongoing. -Status-post left lung biopsy -CXR on 05/23/17 image reviewed demonstrates Moderate-sized left pneumothorax with possible early tension along the left hemidiaphragm and Left apical pulmonary nodule redemonstrated -CXR X4 on 05/23/17 showed that the pneumothorax remained unchanged and stable, no chest tube has been placed -05/24/17 Patient remained stable and no longer required supplemental oxygen -Surgery, Dr. Ocampo was consulted. Cleared patient for discharge as CXR on 05/24 showed improvement of pneumothorax Hypertension, present on admission, ongoing. -Patient reports that his blood pressure at home is stable <140/90 -His blood pressure on admit was elevated -Started patient on labetolol 100 mg po bid -Continue antihypertensives at home and revisit discussion with PCP Chronic obstructive pulmonary disease, present on admission, ongoing -Continue Albuterol as needed Solitary pulmonary nodule of the left lung apex, present on admission, stable - CT angio chest on 03/18/17 showed a spiculated 1.5 cm apical left lung nodule -Lung biopsy completed on 05/23/17 -Pathology Positive for numerous branching fungal hyphae. and Negative for neoplasm. -Infectious Disease, Dr. Morrison was consulted and has sent sample for fungal PCR and ordered Additional studies including galactomannan, Aspergillus antibodies, a monitoring CRP, and an HIV -Follow-up with Dr. Morrison on May 29 Code Status: Full Code Exam Vital Signs (Last) Date Time Temp Pulse Resp B/P Pulse Ox O2 Delivery O2 Flow Rate FiO2 05/24/17 15:57 36.6 65 20 150/79 96 Room Air 05/24/17 05:50 3.00 Exam General: Patient is lying comfortably in bed, AAOX3, not in acute distress, cooperative and pleasant. HEENT: head normocephalic and atraumatic, PERRLA, EOMI, no scleral icterus, noninjected conjunctiva, exotropia right eye Neck: neck supple, non-tender, no lymphadenopathy, trachea midline, no JVD CV: regular rate and rhythm, s1 and s2 heard, no murmur, radial pulses 2+ and equal bilaterally, no rubs murmurs or gallops, no edema Lungs: barrel-chested, diminished lung sounds on the left compared to the right lung gomez Abdomen: Protuberant abdomen, normoactive bowel sounds on 4Q, soft, non- distended, non-tender to palpation, no organomegally, Skin: warm and dry Musculoskeletal: 5/5 UE and LE strength bilaterally, full ROM bilaterally Neuro: Grossly neurologically intact, cranial nerves II through XII intact, no dyskinesia, dysmetria Psych: Normal mood and affect Test 05/23/17 07:30 05/23/17 18:53 05/24/17 03:30 05/24/17 15:22 Prothrombin Time 10.0sec (8.1-12.5) Prothromb Time International Ratio 0.94ratio Neutrophils (%) (Auto) 55.2% (40-74) Lymphocytes (%) (Auto) 32.7% (14-46) Monocytes (%) (Auto) 10.2% (4-12) Eosinophils (%) (Auto) 1.4% (0-5) Basophils (%) (Auto) 0.4% (0-3) White Blood Count 7.2th/mm3 (3.8-10.1) Red Blood Count 3.79mil/mm3 (4.40-5.80) Hemoglobin 11.5g/dL (13.8-17.2) Hematocrit 36.4% (41.0-50.0) Mean Corpuscular Volume 96.0fL (81-100) Mean Corpuscular Hemoglobin 30.3pg (27.0-35.0) Mean Corpuscular Hemoglobin Concent 31.6% (32.0-37.0) Red Cell Distribution Width 13.2% (12.3-15.4) Platelet Count 211bil/L (150-400) Sodium Level 139mEq/L (134-144) Potassium Level 5.0mEq/L (3.5-5.2) Chloride Level 103mEq/L (97-108) Carbon Dioxide Level 24mmol/L (18-29) Blood Urea Nitrogen 14mg/dL (8-27) Creatinine 0.96mg/dL (0.76-1.27) Estimat Glomerular Filtration Rate 84mL/min (>59) Glucose Level 103mg/dL (60-99) Calcium Level 8.7mg/dL (8.5-10.1) Total Bilirubin 0.3mg/dL (0.0-1.2) Aspartate Amino Transf (AST/SGOT) 45U/L (0-50) Alanine Aminotransferase (ALT/SGPT) 25U/L (0-44) Alkaline Phosphatase 113U/L (25-160) C-Reactive Protein 0.7mg/dL (0.0-0.5) Total Protein 5.7g/dL (6.4-8.4) Albumin 3.3g/dL (3.4-5.0) Microbiology Results Left Lung Mass, [place], Biopsy: Positive for numerous branching fungal hyphae. Negative for neoplasm. Discharge Medications Discharge Medications Albuterol HFA (Proair HFA) 8.5 Gm Hfa.aer.ad 2 PUFFS INHALATION Q4H (Reported) Labetalol (Labetalol) 100 Mg Tablet 100 MG PO BID Prescribed by: Krunal SALCEDO Additional med instructions Because you came in with high blood pressure, we started you on Labetalol 100 mg twice daily to help lower your blood pressure Followup Plan Disposition: Patient was stable and discharged to home Follow-up plan Follow-up with Dr. Morrison on May 29 Follow-up with your Primary care doctor in 1 week and get a repeat Chest Xray Discharge Diet: No restrictions Discharge Activity: No restrictions Patient Instructions You came to the hospital yesterday to get a biopsy of a lung nodule of your left lung. During the procedure, you developed a left-sided pneumothorax, which is a collapsed portion of the lung. This occurs when air leaks into the space between your lungs and chest wall. This air pushes on the outside of your lung and causes it to collapse. Initially you complained of some chest pain and shortness of breath, which eventually resolved. We did multiple X-rays yesterday and saw that the pneumothorax remained stable. We contacted surgery who talked to you about holding off on putting the chest tube and just observe to make sure that you continue to remain stable. We also did a repeat Chest X- ray this morning and that showed that the pneumothorax improved and got smaller compared to yesterday. Surgery saw you this morning and also cleared you to go home. You will need to follow-up with your primary care doctor and will need to get a repeat Chest X-ray in a week. If you start to develop worsening shortness of breath, however, please go to the emergency room. In addition, your blood pressure was high when you presented to the hospital. You mentioned that you do have a history of high blood pressure but you don't take any medications for it because they are stable at home. We have started you on Labetalol 100 mg twice a day to help lower your blood pressure. You can revisit this with your primary care doctor to see what they recommend. As we discussed, your lung biopsy showed evidence of fungus growth. Our infectious disease doctor, Dr. Morrison reviewed your records and saw you this afternoon. He ordered some more labs to figure out what kind of fungus it is so that he can treat you appropriately. He suggests that you follow-up with him as an outpatient. You have an appointment with Dr. Morrison next May 29. Follow-up Provider: Shiva Morrison MD Follow-up with PCP in: 1 week (next saturday) Provider: Aundrea Holden DO Follow-up in: 1 week Time spent Greater than 35 minutes Attending Statement The patient was seen and examined together with Dr. Burton on 05/24/17 and I have added additional information to the note above. copies to: Aundrea Holden DO; [facility]; Shiva Morrison MD, Alexa N DO May 24, 2017 20:04 Kanika Luna DO May 25, 2017 15:59
== END 2017-05-24 16:42 | disposition home or self-care (01) ==
LOC: SCT 00:02 → PCC 17:56
PROVIDERS: ADMIT Student in an Organized Health Care Education/Training Program; ATTEND Neuromusculoskeletal Medicine & OMM
DX: D14.32 Benign neoplasm of left bronchus and lung (principal); R91.1 Solitary pulmonary nodule; J95.811 Postprocedural pneumothorax; I10 Essential (primary) hypertension; J44.9 Chronic obstructive pulmonary disease, unspecified; Z79.51 Long term (current) use of inhaled steroids; Z79.899 Other long term (current) drug therapy; Z87.891 Personal history of nicotine dependence; Z11.4 Encounter for screening for human immunodeficiency virus [HIV]
CPT/HCPCS: 32405; 36415; 71010; 77012; 80053; 85014; 85025; 85027; 85049; 85610; 86140; 86606; 87305; 88305; 99152; G0378; G0379; G0433; J1644; J2250; J3010